=== PATIENT | female | born 1985 | race Caucasian/White ===

== ENCOUNTER → 2017-05-04 | Outpatient (CLI) | payer BC ==
[~2017-05-04] MED LIST: ACHD5005 PO; ALBU0.632 IH; DCS100C PO; DIPH25TA82 PO; DOXY100C2 PO; FLUO20CA25 PO; IBP600T1 PO; Ibuprofen PO; MAGN100T3 PO; MAGN250T7 PO; MAGN400C PO; MGX400T PO; MTH.2T PO; MULTIVITAMEN PO; NAPR220C PO; PREN-46 PO; tylenol #3 PO; vitamin B1 PO
--- NOTE | 2017-05-04 15:38 | Diagnostic Imaging Report ---
EXAMINATION: Pelvic ultrasound. INDICATION: Pelvic pain. COMPARISON: There are no prior studies available for comparison. FINDINGS: The uterus is nongravid and not enlarged measuring 7.3 x 4.6 x 4.1 cm. The endometrial lining is slightly thickened measuring 8 mm. This finding is nonspecific. Correlation with the patient's menstrual cycle would be recommended. There is no focal mass involving the uterus to suggest a fibroid. Both ovaries were identified. There is a 1.4 x 1.0 x 1.1 cm cyst associated with the right ovary. This cyst has a generally benign appearance. There is also a 1.9 x 1.0 x 1.8 cm thick-walled cyst arising from the left ovary. This cyst contains a few internal echoes and may be slightly complicated by infection and/or hemorrhage. There is no solid pelvic mass or free fluid collection noted. IMPRESSION: 1. There are bilateral ovarian cysts. The cyst on the left may be slightly complicated by infection and/or hemorrhage. If further study is desired, then a follow-up exam in 4-6 weeks would be recommended. 2. There is no acute pelvic abnormality noted otherwise. Dictated by: Dictated on workstation # [id number]
== END ==
LOC: RAD 13:57
PROVIDERS: ATTEND Nurse Practitioner Family
DX: N83.201 Unspecified ovarian cyst, right side (principal); N83.202 Unspecified ovarian cyst, left side; R10.2 Pelvic and perineal pain
CPT/HCPCS: 76830

== ENCOUNTER 2017-05-09 08:06 | Emergency (ER) | payer BC ==
[~2017-05-09] VITALS: Ht 154.9 cm; Wt 53.5 kg
--- NOTE | 2017-05-09 09:00 | ED GU-Female ---
General Chief Complaint: Abdominal/GI Problems Stated Complaint: L SIDE BACK PAIN AND PELVIC PAIN Nursing Triage Note: ADM TO ROOM REPORTS THAT SHE HAD LOW ABD FULLNESS APX 2 WEEKS AGO SAW FAMILY DR WAS PLACED ON MEDS FOR YEAST INFECTION. LAST 2 DAYS ONSET O L FLANK PAIN PMH OF OVARIAN CYST. Nursing Sepsis Screen: No Definite Risk Source: patient, family Exam Limitations: no limitations History of Present Illness Time seen by provider: 08:55 Initial Comments This 32-year-old white female presents with left pelvic pain. Patient was evaluated for a yeast infection and treated with Diflucan approximately a week ago. Patient had on transvaginal ultrasound bilateral cysts greater on the left. The patient's left pelvic pain has increased precipitating her presentation to the emergency department today. The patient has had slight serosanguineous vaginal discharge. The patient's pain is cramping in nature moderate in intensity and radiates to the left low back. Patient has had a tubal ligation. The patient denies associated fever, chills, dysuria, hematuria, nausea vomiting diarrhea or constipation. Allergies and Home Medications Allergies Coded Allergies: No Known Drug Allergies (Unverified , 03/27/14) Home Medications Docusate Sodium 100 Mg Cap, 100 MG PO BID, #60 Prescribed by: TODD CROOKS on 03/30/14 0904 Hydrocodone Bit/Acetaminophen 1 Tab Tab, 1-2 TAB PO Q4H PRN for pain, #45 Prescribed by: TODD CROOKS on 03/30/14 0904 Magnesium Oxide 400 Mg Tab, 400 MG PO BIDPC, #60 Prescribed by: TODD CROOKS on 03/30/14 0904 Vit/Fe Fumarate/Fa 1 Each Tablet, 1 EACH PO DAILY, (Reported) [Ibuprofen] 600 MG TAB, 600 MG PO Q6H PRN for PAIN, #40 Prescribed by: TODD CROOKS on 03/30/14 0904 Constitutional: No chills, No fever EENTM: No hearing loss, No vision loss Respiratory: No cough Cardiovascular: No chest pain Gastrointestinal: No diarrhea, No vomiting Genitourinary: see HPI, discharge (small amount of serosanguineous vaginal discharge.), denies dysuria, denies frequency, denies hematuria, other (left pelvic pain radiating in the low back.) Musculoskeletal: back pain Skin: No change in color, No rash Psychiatric/Neurological: No Symptoms Reported Endocrine: No Symptoms Reported Past [id number] Hx Patient Social History Recent Foreign Travel: No Contact w/Someone Who Travel: No Recent Infectious Disease Expo: No Immunizations Up To Date Tetanus Booster (TDap): Less than 5yrs PED Vaccines UTD: No Date of Influenza Vaccine: Jun 14, 2012 Surgeries History of Surgeries: Yes (D&C x1) Surgeries: Tubal Ligation Respiratory History of Respiratory Disorde: Yes (asthma with seasonal allergies) Respiratory Disorders: Asthma Cardiovascular History of Cardiac Disorders: No Neurological History of Neurological Disord: No Reproductive System Hx Reproductive Disorders: No Sexually Transmitted Disease: No HIV/AIDS: No Female Reproductive Disorders: Denies Gastrointestinal History of Gastrointestinal Di: No Musculoskeletal History of Musculoskeletal Dis: Yes Musculoskeletal Disorders: Fibromyalgia Endocrine History of Endocrine Disorders: No Cancer History of Cancer: No Psychosocial History of Psychiatric Problem: Yes (pp depression with last ) Behavioral Health Disorders: Depression Integumentary History of Skin or Integumenta: No Blood Transfusions History of Blood Disorders: No Adverse Reaction to a Blood Tr: No Reviewed Nursing Assessment Reviewed/Agree w Nursing PMH: Yes Family Medical History Significant Family History: Diabetes, Psychiatric Problems Family Medial History: Family history: Diabetes mellitus 19 MOTHER, Onset:40's - 50 Family history: Glaucoma 19 MOTHER, Onset:50's - 60 Psychotic disorder 19 MOTHER (depression) Physical Exam Vital Signs Vital Sign - Last 12Hours 05/09/17 08:16 Temp 98.1 Pulse 69 Resp 18 B/P (MAP) 130/59 Pulse Ox 100 O2 Delivery Room Air Capillary Refill : Less Than 3 Seconds General Appearance: WD/WN, no apparent distress HEENT: normal ENT inspection Neck: normal inspection Cardiovascular: regular rate, rhythm Respiratory: chest non-tender, lungs clear Gastrointestinal: normal bowel sounds, tenderness (greatest in the left lower quadrant. No masses were noted. There was questionable minimal rebound tenderness) Back: normal inspection, no CVA tenderness Extremities: normal range of motion, non-tender Neurologic/Psychiatric: no motor/sensory deficits, alert, normal mood/affect Skin: normal color, warm/dry Progress/Results/Core Measures Results/Orders Lab Results Laboratory Tests Test 05/09/17 08:59 05/09/17 09:10 Range/Units White Blood Count 6.7 4.3-11.0 10^3/uL Red Blood Count 4.38 4.35-5.85 10^6/uL Hemoglobin 12.5 11.5-16.0 G/DL Hematocrit 37 35-52 % Mean Corpuscular Volume 85 80-99 FL Mean Corpuscular Hemoglobin 29 25-34 PG Mean Corpuscular Hemoglobin Concent 34 32-36 G/DL Red Cell Distribution Width 12.9 10.0-14.5 % Platelet Count 175 130-400 10^3/uL Mean Platelet Volume 11.2 H 7.4-10.4 FL Neutrophils (%) (Auto) 61 42-75 % Lymphocytes (%) (Auto) 29 12-44 % Monocytes (%) (Auto) 5 0-12 % Eosinophils (%) (Auto) 4 0-10 % Basophils (%) (Auto) 1 0-10 % Neutrophils # (Auto) 4.1 1.8-7.8 X 10^3 Lymphocytes # (Auto) 1.9 1.0-4.0 X 10^3 Monocytes # (Auto) 0.3 0.0-1.0 X 10^3 Eosinophils # (Auto) 0.3 0.0-0.3 10^3/uL Basophils # (Auto) 0.1 0.0-0.1 10^3/uL Sodium Level 139 135-145 MMOL/L Potassium Level 3.9 3.6-5.0 MMOL/L Chloride Level 109 H 98-107 MMOL/L Carbon Dioxide Level 21 21-32 MMOL/L Anion Gap 9 5-14 MMOL/L Blood Urea Nitrogen 15 7-18 MG/DL Creatinine 0.73 0.60-1.30 MG/DL Estimat Glomerular Filtration Rate > 60 BUN/Creatinine Ratio 21 Glucose Level 92 70-105 MG/DL Calcium Level 8.6 8.5-10.1 MG/DL Total Bilirubin 0.3 0.1-1.0 MG/DL Aspartate Amino Transf (AST/SGOT) 18 5-34 U/L Alanine Aminotransferase (ALT/SGPT) 17 0-55 U/L Alkaline Phosphatase 54 40-136 U/L Total Protein 6.6 6.4-8.2 GM/DL Albumin 4.1 3.2-4.5 GM/DL Human Chorionic Gonadotropin, Quant < 5 <5 MIU/ML Urine Color YELLOW Urine Clarity CLEAR Urine pH 6 5-9 Urine Specific [place] 1.015 L 1.016-1.022 Urine Protein NEGATIVE NEGATIVE Urine Glucose (UA) NEGATIVE NEGATIVE Urine Ketones NEGATIVE NEGATIVE Urine Nitrite NEGATIVE NEGATIVE Urine Bilirubin NEGATIVE NEGATIVE Urine Urobilinogen NORMAL NORMAL MG/DL Urine Leukocyte Esterase NEGATIVE NEGATIVE Urine RBC (Auto) 2+ H NEGATIVE Urine RBC 2-5 H /HPF Urine WBC NONE /HPF Urine Squamous Epithelial Cells 5-10 /HPF Urine Crystals NONE /LPF Urine Bacteria NEGATIVE /HPF Urine Casts NONE /LPF Urine Mucus NEGATIVE /LPF Urine Culture Indicated NO My Orders Orders - DIANDRA ESTRADA MD Hcg,Quantitative (05/09/17 08:51) Cbc With Automated Diff (05/09/17 08:51) Comprehensive Metabolic Panel (05/09/17 08:51) Ua Culture If Indicated (05/09/17 08:51) Us Non Ob Pelvis Comp/Transvag (05/09/17 08:51) Ketorolac Injection (Toradol Injection) (05/09/17 09:00) Ns Iv 1000 Ml (Sodium Chloride 0.9%) (05/09/17 09:00) Medications Given in ED Current Medications Medications Dose Ordered Sig/Uma Route Start Time Stop Time Status Last Admin Dose Admin Ketorolac Tromethamine 30 mg ONCE ONCE IVP 05/09/17 09:00 05/09/17 09:01 DC 05/09/17 09:07 30 MG Vital Signs/I&O Vital Sign - Last 12Hours 05/09/17 08:16 Temp 98.1 Pulse 69 Resp 18 B/P (MAP) 130/59 Pulse Ox 100 O2 Delivery Room Air Blood Pressure Mean: 82 Progress Note : Time: 10:40 Progress Note The patient's laboratory evaluation and vaginal ultrasound demonstrated involuted left ovarian cyst. Patient's pain was significantly improved with IV Toradol. Pelvic exam was unremarkable. There was some moderate left adnexal tenderness but no masses were appreciated. Departure Impression Impression: Primary Impression: Pelvic pain Disposition: HOME, SELF-CARE Condition: Improved Departure-Patient Inst. Decision time for Depature: 10:42 Referrals: PAULA SIMONS MD (PCP/Family) Primary Care Physician Patient Instructions: Ovarian Cyst (DC) Add. Discharge Instructions: Oral Toradol for residual pain as needed. Close follow-up with your caregiver of choice on Thursday. Return if any problems or questions. All discharge instructions reviewed with patient and/or family. Voiced understanding. DIANDRA ESTRADA MD May 09, 2017 09:00
[2017-05-09] MEDS: KETOROLAC 30 MG/ML VIAL IVP ONE (09:07)
[2017-05-09] MEDS: NS IV 1000 ML 1,000 ML IV SCH (09:07)
[2017-05-09 09:13] LABS: BASOPHILS # (AUTO) 0.1 10^3/uL (0.0-0.1); BASOPHILS % (AUTO) 1 % (0-10); EOSINOPHILS # (AUTO) 0.3 10^3/uL (0.0-0.3); EOSINOPHILS % (AUTO) 4 % (0-10); LYMPHOCYTES # (AUTO) 1.9 X 10^3 (1.0-4.0); LYMPHOCYTES % (AUTO) 29 % (12-44); MEAN CORPUSCULAR HEMOGLOBIN 29 PG (25-34); MEAN CORPUSCULAR HGB CONC 34 G/DL (32-36); MEAN CORPUSCULAR VOLUME 85 FL (80-99); MEAN PLATELET VOLUME 11.2 FL (7.4-10.4); MONOCYTES # (AUTO) 0.3 X 10^3 (0.0-1.0); MONOCYTES % (AUTO) 5 % (0-12); NEUTROPHILS # (AUTO) 4.1 X 10^3 (1.8-7.8); NEUTROPHILS % (AUTO) 61 % (42-75); PLATELET COUNT 175 10^3/uL (130-400); RED BLOOD COUNT 4.38 10^6/uL (4.35-5.85); RED CELL DISTRIBUTION WIDTH 12.9 % (10.0-14.5); WHITE BLOOD COUNT 6.7 10^3/uL (4.3-11.0)
[2017-05-09 09:29] LABS: ALANINE AMINOTRANSFERASE 17 U/L (0-55); ALBUMIN 4.1 GM/DL (3.2-4.5); ANION GAP 9 MMOL/L (5-14); ASPARTATE AMINO TRANSFERASE 18 U/L (5-34); BILIRUBIN,TOTAL 0.3 MG/DL (0.1-1.0); BLOOD UREA NITROGEN 15 MG/DL (7-18); BUN/CREATININE RATIO 21; CALCIUM 8.6 MG/DL (8.5-10.1); CARBON DIOXIDE 21 MMOL/L (21-32); CHLORIDE 109 MMOL/L (98-107); CREATININE SERUM 0.73 MG/DL (0.60-1.30); GFR ESTIMATED > 60; GLUCOSE 92 MG/DL (70-105); POTASSIUM 3.9 MMOL/L (3.6-5.0); SODIUM 139 MMOL/L (135-145); TOTAL PROTEIN 6.6 GM/DL (6.4-8.2)
[2017-05-09 09:40] LABS: BILIRUBIN,URINE NEGATIVE (NEGATIVE); KETONES,URINE NEGATIVE (NEGATIVE); LEUKOCYTE ESTERASE ,URINE NEGATIVE (NEGATIVE); NITRITE,URINE NEGATIVE (NEGATIVE); PH,URINE 6 (5-9); PROTEIN,URINE NEGATIVE (NEGATIVE); UROBILINOGEN,URINE NORMAL (NORMAL)
--- NOTE | 2017-05-09 10:53 | Diagnostic Imaging Report ---
EXAM: US NON OB PELVIS COMP/TRANSVAG INDICATION: Left pelvic pain. COMPARISON: Pelvic ultrasound 05/04/2017. TECHNIQUE: Transabdominal and transvaginal sonogram was performed. FINDINGS: The uterus is normal in echogenicity and measures 8.0 x 4.9 x 3.8 cm. The endometrium measures 1.3 cm. The cervix is visualized and is grossly unremarkable. Right ovary measures 1.6 x 2.0 x 2.2 cm. There are normal appearing follicles in the right ovary. The previously seen ovarian cyst is not seen today. Left ovary measures 2.2 x 2.2 x 2.2 cm. Hypoechoic cyst within the left ovary measuring 1.2 x 1.4 x 1.1 cm, similar to the prior exam. No adnexal masses are identified. Normal flow in both ovaries color Doppler. Trace free fluid in the pelvis. IMPRESSION: 1. Stable nonspecific left ovarian cyst measuring up to 1.4 cm. The previously seen right ovarian cyst has resolved. 2. Trace free fluid in the pelvis. Dictated by: Dictated on workstation # [id number]
[2017-05-09 11:04] VITALS: BP 130/59
--- OUTSIDE RECORDS SUMMARY | 2017-05-11 09:16 | XMS REPORT ---
Author Author [facility] Organization [facility] Address [address] [place], [place] [id number] Care Team Providers Care Auricular Therapist Name Role Phone PCP Unavailable Allergies and Adverse Reactions Name Reaction Notes NO KNOWN DRUG ALLERGIES Plan of Treatment Not available. Medications Active Name Start Date Estimated Completion Date SIG Comments Paxil Oral tablet 10 mg take 1 tablet (10 mg) by oral route once daily Vitamin Oral tablet 27-0.8 mg take 1 tablet by oral route once daily albuterol sulfate Inhalation Solution for Nebulization 2.5 mg/0.5 mL inhale 0.5 milliliter (2.5 mg) by nebulization route 3 times per day as needed amoxicillin oral tablet 500 mg 02/25/2015 03/27/2015 one TID Problem List Description Status Onset Asthma Active Depression Active Fatigue Active 02/25/2015 Joint pain Active 02/25/2015 Depressive Disorder Active 02/25/2015 Vital Signs Date Time BP-Sys(mm[Hg] BP-Tami(mm[Hg]) HR(bpm) RR(rpm) Temp WT HT HC BMI BSA BMI Percentile O2 Sat(%) 02/20/2015 2:19:00 PM 105 mmHg 60 mmHg 78 bpm 18 rpm 97.5 F 107 lbs 62 in 19.57 kg/m2 1.46 m2 98 % 11/12/2012 3:12:00 PM 120 mmHg 60 mmHg 98 bpm 18 rpm 97 F 115.25 lbs 63 in 20.4154 kg/m 1.5244 m 100 % Social History Name Description Comments denies alcohol use College graduate Tobacco Never smoker Exercises regularly Uses seatbelts History of Procedures Date Ordered Description Order Status 11/12/2012 12:00 AM THER/PROPH/DIAG INJ SC/IM Reviewed Results Summary Not available. History Of Immunizations Not available. History of Past Illness Name Date of Onset Comments Depression Asthma Fatigue 02/25/2015 Joint pain 02/25/2015 Depressive Disorder 02/25/2015 Cough Nov 12 2012 3:13PM Post-nasal drainage Nov 12 2012 3:13PM Upper Respiratory Infection Nov 12 2012 3:13PM Depressive Disorder Feb 20 2015 2:19PM Fatigue Feb 20 2015 2:19PM Joint pain Feb 20 2015 2:19PM Payers Insurance Name Company Name Plan Name Plan Number Policy Number Policy Group Number Start Date [facility] [id number] N/A History of Encounters Visit Date Visit Type Provider 02/20/2015 Office visit HOPE DAMON 11/12/2012 Office visit HOPE DAMON
[2017-05-11 15:35] LABS: CHLAMYDIA DNA PROBE PT Not Detected (Not Detected); NEISSERIA GONORRHEA DNA Not Detected (Not Detected)
== END 2017-05-09 11:04 | disposition home or self-care (01) ==
LOC: EDUNIT# 08:06 → ER 08:08
DX: N83.202 Unspecified ovarian cyst, left side (principal); R10.2 Pelvic and perineal pain; F32.9 Major depressive disorder, single episode, unspecified; J45.909 Unspecified asthma, uncomplicated; Z98.51 Tubal ligation status
CPT/HCPCS: 36415; 76830; 76856; 80053; 81000; 84702; 85025; 87210; 87491; 87591

== ENCOUNTER → 2018-04-30 | Outpatient (CLI) | payer BC ==
--- NOTE | 2018-04-30 08:02 | Diagnostic Imaging Report ---
PROCEDURE: US Gallbladder. TECHNIQUE: Multiple real-time grayscale images were obtained over the right upper quadrant in various projections. INDICATION: Postprandial nausea, elevated liver function studies. FINDINGS: Gallbladder is normal. No stone or sludge. The gallbladder nondilated and wall non-thickened. Hepatic echotexture pattern appeared normal. There is no liver mass. There is no intra-or extrahepatic bile duct dilatation evident, however the majority of the extrahepatic duct as well as the pancreas obscured by shadowing bowel gas. The unobstructed right kidney normal in size, cortical thickness and echotexture. There is no ascites. IMPRESSION: Normal right upper quadrant ultrasound. Dictated by: Dictated on workstation # [id number]
== END ==
LOC: RAD 06:58
DX: K21.9 Gastro-esophageal reflux disease without esophagitis (principal); R94.5 Abnormal results of liver function studies
CPT/HCPCS: 76705

== ENCOUNTER 2018-09-20 12:15 | Outpatient (CLI) | payer BC ==
[~2018-09-20] VITALS: Ht 154.9 cm; Wt 53.5 kg
[~2018-09-20 12:15] MED LIST changes: +MULT-35 PO; +NORG1TAB33 PO; +RANI-514 PO; +SERT25TA PO
[2018-09-21] MEDS ORDERED: FLUO40CA12 PO (07:14)
[2018-09-21] MEDS ORDERED: IBUP-1773 PO (11:17)
[2018-09-21] MEDS ORDERED: ACHD5005 PO (11:17)
== END 2018-09-20 12:52 | disposition home or self-care (01) ==
LOC: PREOP 12:15
PROVIDERS: ATTEND Obstetrics & Gynecology
DX: Z01.818 Encounter for other preprocedural examination (principal)

== ENCOUNTER 2018-09-21 05:55 | Day surgery (SDC) | payer BC ==
[~2018-09-21] VITALS: Ht 154.9 cm; Wt 53.5 kg
--- OUTSIDE RECORDS SUMMARY | 2018-09-21 06:00 | XMS REPORT | Continuity of Care Document ---
Author Author [facility] Organization [facility] Address Unknown Phone Unavailable Allergies Active Description Code Type Severity Reaction Onset Reported/Identified Relationship to Patient Clinical Status Yes No Known Drug Allergies [id number] Drug Allergy Unknown N/A 03/27/2014 Medications There is no data. Problems Date Dx Coded Attending Type Code Diagnosis Diagnosed By 09/29/2012 Ot 632 MISSED 12/18/2013 TIRSO MCKEON, JOSE M Euceda Ot 648.93 OT CURR COND-ANTEPARTUM 12/18/2013 TIRSO MCKEON, JOSE M Euceda Ot 716.90 ARTHROPATHY NOS-UNSPEC 12/30/2013 HOPE SAN DO Ot 648.93 OT CURR COND-ANTEPARTUM 12/30/2013 HOPE SAN DO Ot 780.2 SYNCOPE AND COLLAPSE 03/15/2014 WILL MCKEON, SHEILA V65.11 NEW MOMMY VISIT 03/30/2014 TODD CROOKS DO Ot 285.1 AC POSTHEMORRHAG ANEMIA 03/30/2014 TODD CROOKS DO Ot 285.9 ANEMIA NOS 03/30/2014 TODD CROOKS DO Ot 648.21 ANEMIA-DELIVERED 03/30/2014 TODD CROOKS DO Ot 654.21 PREV DELIVRY W/ OR W/O MENT ANT 03/30/2014 TODD CROOKS DO Ot V27.0 DELIVER-SINGLE LIVEBORN 05/04/2017 TODD CROOKS DO Ot V28.81 ENCOUNTER FOR ANATOMIC SURVEY 05/09/2017 TODD CROOKS DO Ot V28.81 ENCOUNTER FOR ANATOMIC SURVEY 05/09/2017 ANGELINE YOUNGER MACHINE ROUGH ROUNDER Ot N83.201 UNSPECIFIED OVARIAN CYST, RIGHT SIDE 05/09/2017 ANGELINE YOUNGER MACHINE ROUGH ROUNDER Ot N83.202 UNSPECIFIED OVARIAN CYST, LEFT SIDE 05/09/2017 ANGELINE YOUNGER MACHINE ROUGH ROUNDER Ot R10.2 PELVIC AND PERINEAL PAIN 05/09/2017 SEAN MCKEON, DIANDRA June Ot F32.9 MAJOR DEPRESSIVE DISORDER, SINGLE EPISOD 05/09/2017 SEAN MCKEON, DIANDRA June Ot J45.909 UNSPECIFIED ASTHMA, UNCOMPLICATED 05/09/2017 SEAN MCKEON, DIANDRA June Ot N83.202 UNSPECIFIED OVARIAN CYST, LEFT SIDE 05/09/2017 SEAN MCKEON, DIANDRA June Ot R10.2 PELVIC AND PERINEAL PAIN 05/09/2017 SEAN MCKEON, DIANDRA June Ot Z98.51 TUBAL LIGATION STATUS 05/11/2017 SEAN MCKEON, DIANDRA June Ot F32.9 MAJOR DEPRESSIVE DISORDER, SINGLE EPISOD 05/11/2017 SEAN MCKEON, DIANDRA June Ot J45.909 UNSPECIFIED ASTHMA, UNCOMPLICATED 05/11/2017 SEAN MCKEON, DIANDRA June Ot N83.202 UNSPECIFIED OVARIAN CYST, LEFT SIDE 05/11/2017 SEAN MCKEON, DIANDRA June Ot R10.2 PELVIC AND PERINEAL PAIN 05/11/2017 SEAN MCKEON, DIANDRA June Ot Z98.51 TUBAL LIGATION STATUS 05/11/2017 SEAN MCKEON, DIANDRA June Ot F32.9 MAJOR DEPRESSIVE DISORDER, SINGLE EPISOD 05/11/2017 SEAN MCKEON, DIANDRA June Ot J45.909 UNSPECIFIED ASTHMA, UNCOMPLICATED 05/11/2017 SEAN MCKEON, DIANDRA June Ot N83.202 UNSPECIFIED OVARIAN CYST, LEFT SIDE 05/11/2017 SEAN MCKEON, DIANDRA June Ot R10.2 PELVIC AND PERINEAL PAIN 05/11/2017 SEAN MCKEON, DIANDRA June Ot Z98.51 TUBAL LIGATION STATUS 05/19/2017 ANGELINE YOUNGER APRN Ot N83.201 UNSPECIFIED OVARIAN CYST, RIGHT SIDE 05/19/2017 ANGELINE YOUNGER APRN Ot N83.202 UNSPECIFIED OVARIAN CYST, LEFT SIDE 05/19/2017 ANGELINE YOUNGER APRN Ot R10.2 PELVIC AND PERINEAL PAIN 05/03/2018 Ot K21.9 GASTRO- ESOPHAGEAL REFLUX DISEASE WITHOUT 05/03/2018 Ot R94.5 ABNORMAL RESULTS OF LIVER FUNCTION STUDI 05/14/2018 Ot K21.9 GASTRO- ESOPHAGEAL REFLUX DISEASE WITHOUT 05/14/2018 Ot R94.5 ABNORMAL RESULTS OF LIVER FUNCTION STUDI 09/17/2018 TODD CROOKS DO Ot Z01.818 ENCOUNTER FOR OTHER PREPROCEDURAL EXAMIN Procedures Code Description Performed By Performed On 74.1 LOW CERVICAL 03/28/2014 Results Test Result Range Vitamin D, 25 OH - 10/20/16 10:35 Vitamin D, 25 OH 26.50 ng/mL 25.00-100.00 Lab Card - 10/20/16 10:35 LabCard Specimen submitted to [facility] for Testing. Hep B Surface Ab - 11/07/16 14:40 HEP B SURFACE AB, QUAL REACTIVE CBC with Auto Diff - 11/14/16 11:16 Baso% 0.30 % 0.00-2.50 Eos 0.1 K/uL 0.0-0.7 Eos% 1.7 % 0.0-7.0 Hct 39.0 % 36.0-46.0 Hgb 12.9 g/dL 13.0-15.0 Lym 1.97 K/uL 0.60-3.40 Lym% 28.4 % 10.0-50.0 MCH 28.9 pg 27.0-31.0 MCHC 33.1 g/dL 32.0-36.0 MCV 87.4 fL 80.0-97.0 [place]% 6.5 % 0.0-12.0 MPV 10.6 fL 7.4-10.0 Omayra% 63.1 % 37.0-80.0 Plt 223 K/uL 150-400 RBC 4.46 M/uL 3.60-5.00 RDW 13.6 % 11.6-14.8 WBC 6.93 K/uL 5.00-10.00 Omayra 4.37 K/uL 2.00-6.90 [place] 0.5 K/uL 0.0-0.9 Baso 0.0 K/uL 0.0-0.2 Complete blood count (CBC) with automated white blood cell (WBC) differential - 05/09/17 08:59 Blood leukocytes automated count (number/volume) 6.7 10*3/uL 4.3-11.0 Blood erythrocytes automated count (number/volume) 4.38 10*6/uL 4.35-5.85 Venous blood hemoglobin measurement (mass/volume) 12.5 g/dL 11.5-16.0 Blood hematocrit (volume fraction) 37 % 35-52 Automated erythrocyte mean corpuscular volume 85 [foz_us] 80-99 Automated erythrocyte mean corpuscular hemoglobin (mass per erythrocyte) 29 pg 25-34 Automated erythrocyte mean corpuscular hemoglobin concentration measurement ( mass/volume) 34 g/dL 32-36 Automated erythrocyte distribution width ratio 12.9 % 10.0-14.5 Automated blood platelet count (count/volume) 175 10*3/uL 130-400 Automated blood platelet mean volume measurement 11.2 [foz_us] 7.4-10.4 Automated blood neutrophils/100 leukocytes 61 % 42-75 Automated blood lymphocytes/100 leukocytes 29 % 12-44 Blood monocytes/100 leukocytes 5 % 0-12 Automated blood eosinophils/100 leukocytes 4 % 0-10 Automated blood basophils/100 leukocytes 1 % 0-10 Blood neutrophils automated count (number/volume) 4.1 10*3 1.8-7.8 Blood lymphocytes automated count (number/volume) 1.9 10*3 1.0-4.0 Blood monocytes automated count (number/volume) 0.3 10*3 0.0-1.0 Automated eosinophil count 0.3 10*3/uL 0.0-0.3 Automated blood basophil count (count/volume) 0.1 10*3/uL 0.0-0.1 Comprehensive metabolic panel - 05/09/17 08:59 Serum or plasma sodium measurement (moles/volume) 139 mmol/L 135-145 Serum or plasma potassium measurement (moles/volume) 3.9 mmol/L 3.6-5.0 Serum or plasma chloride measurement (moles/volume) 109 mmol/L 98-107 Carbon dioxide 21 mmol/L 21-32 Serum or plasma anion gap determination (moles/volume) 9 mmol/L 5-14 Serum or plasma urea nitrogen measurement (mass/volume) 15 mg/dL 7-18 Serum or plasma creatinine measurement (mass/volume) 0.73 mg/dL 0.60-1.30 Serum or plasma urea nitrogen/creatinine mass ratio 21 NRG Serum or plasma creatinine measurement with calculation of estimated glomerular filtration rate > NRG Serum or plasma glucose measurement (mass/volume) 92 mg/dL 70-105 Serum or plasma calcium measurement (mass/volume) 8.6 mg/dL 8.5-10.1 Serum or plasma total bilirubin measurement (mass/volume) 0.3 mg/dL 0.1-1.0 Serum or plasma alkaline phosphatase measurement (enzymatic activity/volume) 54 U/L 40-136 Serum or plasma aspartate aminotransferase measurement (enzymatic activity/ volume) 18 U/L 5-34 Serum or plasma alanine aminotransferase measurement (enzymatic activity/volume ) 17 U/L 0-55 Serum or plasma protein measurement (mass/volume) 6.6 g/dL 6.4-8.2 Serum or plasma albumin measurement (mass/volume) 4.1 g/dL 3.2-4.5 Serum or plasma choriogonadotropin measurement (units/volume) - 05/09/17 08:59 Serum or plasma choriogonadotropin measurement (units/volume) < m[iU ]/mL <5 Complete urinalysis with reflex to culture - 05/09/17 09:10 Urine color determination YELLOW NRG Urine clarity determination CLEAR NRG Urine pH measurement by test strip 6 5-9 Specific gravity of urine by test strip 1.015 1.016- 1.022 Urine protein assay by test strip, semi-quantitative NEGATIVE NEGATIVE Urine glucose detection by automated test strip NEGATIVE NEGATIVE Erythrocytes detection in urine sediment by light microscopy 2+ NEGATIVE Urine ketones detection by automated test strip NEGATIVE NEGATIVE Urine nitrite detection by test strip NEGATIVE NEGATIVE Urine total bilirubin detection by test strip NEGATIVE NEGATIVE Urine urobilinogen measurement by automated test strip (mass/volume) NORMAL NORMAL Urine leukocyte esterase detection by dipstick NEGATIVE NEGATIVE Automated urine sediment erythrocyte count by microscopy (number/high power field) [HPF] NRG Automated urine sediment leukocyte count by microscopy (number/high power field ) NONE NRG Bacteria detection in urine sediment by light microscopy NEGATIVE NRG Squamous epithelial cells detection in urine sediment by light microscopy 5-10 NRG Crystals detection in urine sediment by light microscopy NONE NRG Casts detection in urine sediment by light microscopy NONE NRG Mucus detection in urine sediment by light microscopy NEGATIVE NRG Complete urinalysis with reflex to culture NO NRG Microscopic examination by wet preparation - 05/09/17 10:38 WET PREP RESULTS NO TRICHOMONAS OBSERVED NRG Chlamydia trachomatis DNA detection by probe and signal amplification method - 05/09/17 10:38 Chlamydia trachomatis DNA detection by probe and target amplification method Not Detected Not Detected Neisseria gonorrhoeae DNA detection by probe and signal amplification method - 05/09/17 10:38 Gonorrhea amp DNA-urine Not Detected Not Detected Lab Card - 01/22/18 08:29 LabCard Specimen submitted to [facility] for Testing. Lab Card - 04/21/18 09:53 LabCard Specimen submitted to [facility] for Testing. Encounters ACCT No. Visit Date/Time Discharge Status Pt. Type Provider Facility Loc./Unit Complaint [id number] 04/23/2015 21:51:47 04/23/2015 23:59:59 CLS Outpatient HOPE EUCEDA [id number] 09/16/2018 05:33:00 09/16/2018 23:59:59 CLS Outpatient TODD CROOKS DO [facility] PREOP MENORRHAGIA [id number] 05/09/2017 08:08:00 05/09/2017 11:04:00 DIS Emergency SEAN MCKEON, DIANDRA June [facility] ER L SIDE BACK PAIN AND PELVIC PAIN [id number] 05/04/2017 13:57:00 05/04/2017 23:59:59 CLS Outpatient ANGELINE YOUNGER APRN [facility] RAD PELVIC AND PERINEAL PAIN [id number] 03/28/2014 00:01:00 03/30/2014 17:50:00 DIS Inpatient TODD CROOKS DO [facility] LDRP PT [place] [place] [id number] 12/30/2013 17:50:00 12/30/2013 20:25:00 DIS Outpatient HOPE SAN DO [facility] WSo SYNCOPE [id number] 12/18/2013 09:21:00 12/18/2013 11:35:00 DIS Outpatient JOSE M CHAHAL MD [facility] JOINT PAIN [id number] 12/02/2013 09:45:00 12/02/2013 23:59:59 CLS Outpatient TODD CROOKS DO [facility] RAD SURVEY [id number] 09/21/2018 08:00:00 PEN Preadmit TODD CROOKS DO [facility] SDC MENORRHAGIA [id number] 04/30/2018 06:58:00 Document Registration [id number] 09/29/2012 09:48:00 Document Registration [id number] 04/21/2018 09:43:00 04/21/2018 23:59:00 DIS Outpatient PAULA SIMONS [id number] 01/22/2018 08:11:00 01/22/2018 23:59:00 DIS Outpatient MAYLINLANCE PAULA [id number] 06/16/2017 16:24:00 06/16/2017 23:59:00 DIS Outpatient SELF, PHY [id number] 11/14/2016 11:13:00 11/14/2016 23:59:00 DIS Outpatient KRISTYN PAULA [id number] 10/20/2016 10:30:00 10/20/2016 23:59:00 DIS Outpatient AIRAM DUTTON [id number] 06/30/2016 15:40:00 06/30/2016 23:59:00 DIS Outpatient SELF, VAMSI [id number] 11/07/2016 14:36:00 Document Registration [id number] 03/15/2014 14:38:00 03/15/2014 23:59:59 [facility] Outpatient WILL MCKEON, SHEILA
[2018-09-21] MEDS ORDERED: LACTATED RINGERS 1,000 ML IV PRN (06:08)
[2018-09-21 06:15] VITALS: BP 118/73
[2018-09-21] MEDS ORDERED: ceFAZolin INJECTION 1,000 MG in NS (IVPB) 50 ML IV ONE (06:15)
[2018-09-21] MEDS ORDERED: ONDANSETRON 4 MG/2 ML (SDV) Z0FRAN ONE (06:50)
[2018-09-21] MEDS ORDERED: fentaNYL INJECTION 100 MCG/2 ML AMP ONE (06:50)
[2018-09-21] MEDS ORDERED: SEVOFLURANE (ULTANE) 15 ML INHAL SOLN ONE ×3 (06:50→11:04)
[2018-09-21] MEDS ORDERED: DEXAMETHASONE 10 MG/ML (DECADRON) 1 ML VIAL ONE (06:50)
[2018-09-21] MEDS ORDERED: LIDOCAINE PF 2% 5 ML (XYLOCAINE) VIAL ONE (06:50)
[2018-09-21] MEDS ORDERED: proPOfol 200 MG/20 ML (DIPRIVAN) VIAL IV ONE (06:50)
[2018-09-21] MEDS ORDERED: KETOROLAC 30 MG/ML VIAL ONE (06:51)
[2018-09-21] MEDS ORDERED: MIDAZOLAM 2 MG/2 ML (VERSED) VIAL ONE (06:51)
[2018-09-21] MEDS ORDERED: FLUO40CA12 PO (07:14)
--- NOTE | 2018-09-21 10:32 | Progress Note-Pre Operative ---
Pre-Operative Progress Note H&P Reviewed The H&P was reviewed, patient examined and no changes noted. Date Seen by Provider: Sep 21, 2018 Time Seen by Provider: 10:30 Date H&P Reviewed: Sep 21, 2018 Time H&P Reviewed: 07:30 Pre-Operative Diagnosis: menorrhagia TODD CROOKS DO Sep 21, 2018 10:32
--- NOTE | 2018-09-21 11:13 | Operative Report ---
Operative Report Date of Procedure/Surgery Sep 21, 2018 Surgeon (s) TODD CROOKS DO Porcelain Waxer (s): NA Post-Operative Diagnosis menorrhagia Procedure Performed hysteroscopy dilation and curettage, Novasure endometrial ablation Description of Procedure Anesthesia Type: General Estimated blood loss (mL): minimal Specimen(s) collected/removed endometrial curettings Description of the Procedure With informed consent the patient was taken to the operating room where general anesthesia was found to be adequate. She was prepped and draped in the usual sterile fashion in the dorsolithotomy position. The bladder was drained of clear yellow urine with a straight cath. A weighted speculum was placed in the vagina and the cervix was grasped with a tenaculum. The cervix was dilated with Jeremie dilators. I then inserted a sure Sound. The length was 6.5 cm At this point The hysteroscope was inserted and a hysteroscope was done. There was no abnormal pathology. I removed the scope and a gentle curette was done with a small amount of proliferative tissue that was sent for pathology. I then inserted the NovaSure device and measurements were taken. The width was 3.8 cm. I then did the compliance test by inserting a small puff of CO2 and once this was passed, the device was enabled. Ablation was achieved at 60 seconds with a power of 136. The device halted the procedure once the ablation was completed. The patient tolerated the procedure well. The device and instruments were removed. the patient was awakened and taken to recovery in a stable condition. Sponge, lap and instrument counts were correct times two. Findings of the Procedure Length 6.5 cm width 3.8 cm Poser 136 60 seconds 40 ml deficit Allergies and Home Medications Allergies Coded Allergies: No Known Drug Allergies (Unverified , 09/20/18) Home Medications Fluoxetine HCl 40 Mg Capsule, 40 MG PO DAILY, (Reported) Multivitamin 1 Each Tablet, 1 EACH PO DAILY, (Reported) Norgestrel-Ethinyl Estradiol 1 Each Tablet, 1 EACH PO DAILY, (Reported) Ranitidine HCl 75 Mg Tablet, 75 MG PO DAILY, (Reported) Patient Home Medication List Home Medication List Reviewed: Yes TODD CROOKS DO Sep 21, 2018 11:13
[2018-09-21] MEDS ORDERED: ONDANSETRON 4 MG/2 ML (SDV) Z0FRAN IVP PRN (11:15)
[2018-09-21] MEDS ORDERED: HYDROcodone/APAP 5 MG/325 MG (LORTAB) TAB PO PRN (11:15)
[2018-09-21] MEDS ORDERED: morphine INJ 10 MG/ML 1ML (SYR OR VIAL) IVP ONE (11:15)
[2018-09-21] MEDS ORDERED: KETOROLAC 30 MG/ML VIAL IVP PRN (11:15)
[2018-09-21] MEDS ORDERED: IBUP-1773 PO (11:17)
[2018-09-21] MEDS ORDERED: ACHD5005 PO (11:17)
--- NOTE | 2018-09-21 11:19 | Discharge Inst-Women's Service ---
Discharge Inst-Women's Serv Depart Medication/Instructions New, Converted or Re-Newed RX: RX on Chart Instructions expect light spotting, bleeding for up to 7 days vaginal discharge at about 7-10 days post op is normal call for fever, pain, concerns Final Diagnosis menorrhagia Consults/Follow Up Additional Follow Up: Yes (2 weeks with Jessica or Micah) Activity Activity: Activity as Tolerated Driving Instructions: No Driving for 24 Hours NO SMOKING: NO SMOKING Nothing Inside Vagina: No Douching, No Zoar (for 2 weeks), No Tampons Diet Discharge Diet: No Restrictions Symptoms to Report to DrJesse: Bleeding Excessive, Pain Increased, Fever Over 101 Degrees F, Vaginal Bleeding Increase, Cramps in Feet or Legs, Vaginal Discharge Foul For Any Problems or Questions: Contact Your Physician TODD CROOKS DO Sep 21, 2018 11:19
[2018-09-21 12:10] VITALS: BP 110/59
[2018-09-21 12:39] VITALS: BP 115/72
[2018-09-21 13:10] VITALS: BP 102/70
--- NOTE | 2018-09-21 13:23 | Anesthesia-General Post-Op ---
General Patient Condition Mental Status/LOC: Same as Preop Cardiovascular: Satisfactory Nausea/Vomiting: Absent Respiratory: Satisfactory Pain: Controlled Complications: Absent Post Op Complications Complications None Follow Up Care/Instructions Patient Instructions None needed. Anesthesia/Patient Condition Patient Condition Patient is doing well, no complaints, stable vital signs, no apparent adverse anesthesia problems. No complications reported per nursing. DUDLEY DELEON CRNA Sep 21, 2018 13:23
== END 2018-09-21 13:15 | disposition home or self-care (01) ==
LOC: SDC 05:55
PROVIDERS: ATTEND Obstetrics & Gynecology
DX: N92.0 Excessive and frequent menstruation with regular cycle (principal); J45.909 Unspecified asthma, uncomplicated; M79.7 Fibromyalgia
CPT/HCPCS: 84703; 87081; 94664

== ENCOUNTER → 2021-07-04 | Outpatient (CLI) | payer BC ==
[~2021-07-04] MED LIST changes: +FLUO40CA12 PO; +IBUP-1773 PO; -RANI-514 PO; +RANI-607 PO
--- NOTE | 2021-07-04 12:30 | Diagnostic Imaging Report ---
PROCEDURE: Pelvic comp/transvaginal sonogram. TECHNIQUE: Complete transabdominal and transvaginal pelvic ultrasound was performed. In addition, limited pelvic Doppler was performed. INDICATION: Dyspareunia and pelvic pain. Uterus measures 6.4 x 3.1 x 4.1 cm. Endometrium is 4 mm in thickness and shows some heterogeneity. There is heterogeneity of the myometrium but no discrete myometrial mass is detected. Right ovary measures 1.5 x 2.1 x 2.3 cm and left ovary measures 2.1 x 1.4 x 1.4 cm. Both ovaries demonstrate blood flow. There is no free fluid. IMPRESSION: There is endometrial and myometrial heterogeneity. No discrete mass is detected. The study is otherwise unremarkable. Dictated by: Dictated on workstation # [id number]
== END ==
LOC: RAD 09:47
PROVIDERS: ATTEND Obstetrics & Gynecology
DX: R10.2 Pelvic and perineal pain (principal)
CPT/HCPCS: 76830; 76856

== ENCOUNTER 2021-07-16 05:44 | Outpatient (CLI) | payer BC ==
[~2021-07-16] VITALS: Ht 157.5 cm; Wt 50.9 kg
[2021-07-17] MEDS ORDERED: FEXO180T84 PO (13:08)
[2021-07-17] MEDS ORDERED: MULT-1136 PO (13:08)
== END 2021-07-17 13:20 | disposition home or self-care (01) ==
LOC: PREOP 05:44
PROVIDERS: ATTEND Obstetrics & Gynecology
DX: Z01.818 Encounter for other preprocedural examination (principal)

== ENCOUNTER 2021-07-23 10:19 | Day surgery (SDC) | payer BC ==
[2021-07-23] VITALS (11 sets, daily range): BP systolic 82–96; BP diastolic 40–67
[~2021-07-23] VITALS: Ht 157.5 cm; Wt 50.9 kg
[~2021-07-23 10:19] MED LIST changes: +FEXO180T84 PO; +MULT-1136 PO
[2021-07-23] MEDS ORDERED: ESTRADIOL VAGINAL CREAM 42.5 GM (ESTRACE) VG ONE (10:28)
[2021-07-23] MEDS ORDERED: LIDOCAINE/EPI 1%-1:100,000 (XYLOCAINE) 20ML ONE (10:29)
[2021-07-23] MEDS ORDERED: VASOPRESSIN INJECTION 20 UNIT/ML VIAL ONE (10:29)
[2021-07-23] MEDS ORDERED: NS (IVPB) 0 ML ONE (10:29)
[2021-07-23 10:40] LABS: BILIRUBIN,URINE NEGATIVE (NEGATIVE); CLARITY,URINE CLEAR; COLOR,URINE YELLOW; GLUCOSE, URINE (UA) NEGATIVE (NEGATIVE); KETONES,URINE 3+ (NEGATIVE); LEUKOCYTE ESTERASE ,URINE NEGATIVE (NEGATIVE); NITRITE,URINE NEGATIVE (NEGATIVE); PROTEIN,URINE NEGATIVE (NEGATIVE)
[2021-07-23] MEDS ORDERED: ceFAZolin 2 GM IV Premixed 50 ML IV ONE (10:45)
--- NOTE | 2021-07-23 10:47 | Progress Note-Pre Operative ---
Pre-Operative Progress Note H&P Reviewed The H&P was reviewed, patient examined and no changes noted. Date Seen by Provider: Jul 23, 2021 Time Seen by Provider: 10:40 Date H&P Reviewed: Jul 23, 2021 Time H&P Reviewed: 10:40 Pre-Operative Diagnosis: abnormal uterine bleeding s/p uterine ablation TODD CROOKS DO Jul 23, 2021 10:47
[2021-07-23 10:52] LABS: BACTERIA,URINE TRACE /HPF; RBC,URINE 0-2 /HPF
[2021-07-23 10:53] LABS: SQUAMOUS EPITHELIAL CELL,UR 0-2 /HPF
[2021-07-23 11:33] LABS: BASOPHILS # (AUTO) 0.1 10^3/uL (0.0-0.1); BASOPHILS % (AUTO) 1 % (0-10); EOSINOPHILS # (AUTO) 0.1 10^3/uL (0.0-0.3); EOSINOPHILS % (AUTO) 1 % (0-10); HEMATOCRIT 39 % (35-52); HEMOGLOBIN 13.3 g/dL (11.5-16.0); LYMPHOCYTES # (AUTO) 1.7 10^3/uL (1.0-4.0); LYMPHOCYTES % (AUTO) 17 % (12-44); MEAN CORPUSCULAR HEMOGLOBIN 29 pg (25-34); MEAN CORPUSCULAR HGB CONC 34 g/dL (32-36); MEAN CORPUSCULAR VOLUME 85 fL (80-99); MONOCYTES # (AUTO) 0.4 10^3/uL (0.0-1.0); MONOCYTES % (AUTO) 4 % (0-12); NEUTROPHILS # (AUTO) 7.3 10^3/uL (1.8-7.8); NEUTROPHILS % (AUTO) 76 % (42-75); PLATELET COUNT 214 10^3/uL (130-400); WHITE BLOOD COUNT 9.5 10^3/uL (4.3-11.0)
[2021-07-23] MEDS: LACTATED RINGERS 1,000 ML IV PRN ×2 (11:50→13:14)
[2021-07-23] MEDS ORDERED: GLYCOPYRROLATE 0.2 MG/ML (ROBINUL) 2 ML VIAL ONE (12:38)
[2021-07-23] MEDS ORDERED: MIDAZOLAM 2 MG/2 ML (VERSED) VIAL ONE (12:38)
[2021-07-23] MEDS ORDERED: LIDOCAINE PF 2% 5 ML (XYLOCAINE) VIAL ONE (12:38)
[2021-07-23] MEDS ORDERED: NEOSTIGMINE 3 MG/3 ML VIAL ONE (12:38)
[2021-07-23] MEDS ORDERED: ROCURONIUM 10 MG/ML 5 ML SYRINGE IV ONE (12:38)
[2021-07-23] MEDS ORDERED: proPOfol 200 MG/20 ML (DIPRIVAN) VIAL IV ONE (12:38)
[2021-07-23] MEDS ORDERED: fentaNYL INJ 100 MCG/2 ML AMP ONE (12:38)
[2021-07-23] MEDS ORDERED: ONDANSETRON 4 MG/2 ML (SDV) Z0FRAN ONE (12:38)
[2021-07-23] MEDS ORDERED: PHENYLEPHRINE 100 MCG/ML 10 ML (ANESTHESIA) SYR ONE (12:59)
--- NOTE | 2021-07-23 14:59 | Operative Report ---
Operative Report Date of Procedure/Surgery Jul 23, 2021 Surgeon (s) TODD CROOKS DO Donkey Engine Firer/Fireman (s): NA Post-Operative Diagnosis abnormal uterine bleeding post ablation cervical stenosis extensive enteropelvic and paratubal adhesions uterovaginal prolapse Procedure Performed RaTH, neeru salpingectomy extensive lysis of adhesions Description of Procedure Anesthesia Type: General Estimated blood loss (mL): minimal Specimen(s) collected/removed uterus, bilateral tubes and ovaries Description of the Procedure After informed consent was obtained, patient was taken into the operating room where general anesthetic was found to be adequate. She was prepped and draped in the usual sterile fashion in the dorsal lithotomy position. A Singh catheter was placed. A speculum was placed in the vagina. The cervix was visualized and the anterior lip was grasped with a sharp toothed tenaculum. The uterus was sounded and depth was approximately 8 centimeters. I placed the Amarilis device (8 cm) and a 3 cm collar was advanced over the cervix. I inserted the Amarilis without difficulty, inflating the balloon and securing it around the fornix of the cervix. The collar was then secured with sutures at 12 o'clock. Attention was then turned to the patient's abdomen. The skin was injected with 0.25% Marcaine. A supraumbilical incision was made about 8 mm in length. A Veress needle was inserted and I confirmed intraabdominal placement with a drop in pressure and the saline drop test. The opening pressure was 6 mmHg. I then insufflated the abdomen to a maximum of 15 mmHg with warmed CO2 gas. I placed an additional 8 mm trocar in the left abdomen lateral to the umbilicus approximately 15 cm lateral to the supraumbilical incision. The second robotic port was placed about 12 cm lateral to the right of the umbilical placement. This was an 8 mm trocar. These were placed under direct visualization of the laparoscope. 0.25% Marcaine was injected prior to placement of all trocars. When all placements were confirmed, the patient was placed in steep Trendelenburg allowing adequate visualization and the robot was brought in for docking. The docking was accomplished without difficulty. I then took over the command of the robot utilizing the synchroseal and monopolar todd. The uterus was boggy and anteverted and there were adhesions in the right mid abdomen omental and bowel, left pericolic adhesion, adhesions in the culdesac, paratubal adhesions that all were taken down prior to accomplishing the hysterectomy. The right midabdominal omental adhesions were fairly dense and due to previous appendectomy. There was a loop of bowel more loosely adherent to the right side wall kinking the bowel. I took these down gently without bleeding. This took approximately an additional 20 minutes before I could start the hysterectomy. Now, I was able to visualize the round ligaments bilaterally and grasped them and cauterized with bipolar cautery and then cut with my todd. At this point, I then did bilateral salpingectomy. I incised the mesosalpinx with the todd. Then, I grasped the uterine ovarian ligament and transected bilaterally using the synchroseal. I then moved my dissection to the posterior leaves of the broad ligament. I dissected the posterior leaves of the broad ligament off the uterine arteries skeletonizing them bilaterally. I then took a second clamp with the synchroseal and with the todd, transected the vessels away from the lateral aspect to the cervical stroma. I dissected the anterior peritoneum off the lower uterine segment. I continually pushed the bladder back and I took excessively great care. I then dissected in a V fashion towards the midline between the uterosacral ligaments. This allowed me to skeletonize the uterine vessels bilaterally. The balloon on the AMARILIS was insufflated. This allowed me to see the AMARILIS circumferentially. I then performed a colpotomy anteriorly and then amputate with cervix away from the vaginal fornix. I then continued the colpotomy circumferentially. Once this was performed, the funeral assistant removed the uterus and the tubes through the vagina. She then left the a sponge in the vagina to maintain the pneumoperitoneum. . I then began closure of the vaginal cuff. I closed the apices of the vaginal cuff with 2-0 Vicryl V lock sutures with a colposuspension through the uterosacral ligaments. This suspended the apices of the vaginal cuff. I extended this to the midline from both sides and overlapped the V lock sutures in the midline. Excellent closure is noted and hemostasis is achieved. All the needles were removed from the patient's abdomen. Now, the robotic instruments were removed and the robot was docked back to laparoscopy. The pelvis was irrigated. There was no active bleeding noted. Bilateral ureters were seen the entire time during the surgery and were peristalsing. There was no excessive bleeding noted. The trocars were removed under direct visualization. The laparoscopic sites were visualized and found to be hemostatic. The trocar sites were injected with 0.25% Marcaine. The skin incisions were closed with 4-0 Monocryl in a subcuticular fashion and then with Dermabond. Op sites were placed over the incision sites. The instruments were removed from the vagina and I noted there were no abrasions. Sponge, lap, needle and instrument counts correct times two. Patient was awakened and taken to recovery in a stable condition. Findings of the Procedure uterus was boggy and anteverted adhesions in the right mid abdomen omental and bowel left pericolic adhesion adhesions in the culdesac paratubal adhesions bilateral tubal interruption/fallope rings bilaterral functional ovarian cysts bilateral tubal cysts Allergies and Home Medications Allergies Coded Allergies: No Known Drug Allergies (Unverified , 09/20/18) Patient Home Medication List Home Medication List Reviewed: Yes Acetaminophen (Acetaminophen) 500 Mg Tablet, 1,000 MG PO Q8HR Prescribed by: TODD CROOKS on 07/23/21 152 Bethanechol Chloride (Bethanechol Chloride) 25 Mg Tablet, 25 MG PO ACHS Prescribed by: TODD CROOKS on 07/25/21 145 Fexofenadine HCl (Lakisha Allergy) 180 Mg Tablet, 180 MG PO DAILY, (Reported) Entered as Reported by: CHRISTIANO IRAHETA on 07/17/21 1308 Last Action: Last Taken Edited Ibuprofen (Ibu) 600 Mg Tablet, 600 MG PO Q6HR Prescribed by: TODD CROOKS on 07/23/21 152 Multivitamin (Multivitamin) 1 Each Tablet, 1 EACH PO DAILY, (Reported) Entered as Reported by: CHRISTIANO IRAHETA on 07/17/21 1308 Last Action: Last Taken Edited Oxycodone Hcl (Oxyir Tablet) 5 Mg Tab, 5 MG PO Q4HR PRN for PAIN-SEE DOSE INSTRUCTIONS Prescribed by: TODD CROOKS on 07/23/21 152 Simethicone (Mi-Acid) 80 Mg Tab.chew, 80 MG PO Q2H PRN for GAS Prescribed by: TODD CROOKS on 07/25/21 145 Tamsulosin HCl (Flomax) 0.4 Mg Cap, 0.4 MG PO DAILY@1800 Prescribed by: TODD CROOKS on 07/25/21 1453 TODD CROOKS DO Jul 23, 2021 14:58
[2021-07-23] MEDS ORDERED: LACTATED RINGERS 1,000 ML IV SCH (15:00)
[2021-07-23] MEDS ORDERED: ONDANSETRON 4 MG (ZOFRAN) ORAL DISSOLVE TAB PO PRN (15:00)
[2021-07-23] MEDS ORDERED: morphine INJ 4 MG/ML 1 ML (VIAL/SYRINGE) IV PRN (15:00)
[2021-07-23] MEDS ORDERED: KETOROLAC 30 MG/ML VIAL IVP ONE (15:00)
[2021-07-23] MEDS ORDERED: NALOXONE 0.4 MG/ML 1 ML (NARCAN) VIAL IV PRN (15:00)
--- NOTE | 2021-07-23 15:12 | Anesthesia-General Post-Op ---
General Patient Condition Mental Status/LOC: Same as Preop Cardiovascular: Satisfactory Nausea/Vomiting: Absent Respiratory: Satisfactory Pain: Controlled Complications: Absent Post Op Complications Complications None Follow Up Care/Instructions Patient Instructions None needed. Anesthesia/Patient Condition Patient Condition Patient is doing well, no complaints, stable vital signs, no apparent adverse anesthesia problems. No complications reported per nursing. ADRIENNE HAYDEN CRNA Jul 23, 2021 15:12
[2021-07-23] MEDS ORDERED: HYDROmorphone 2 MG/ML VIAL (DILAUDID) IV ONE (15:15)
[2021-07-23] MEDS ORDERED: MEPERIDINE (DEMEROL) INJ 50 MG/ML IVP ONE (15:15)
[2021-07-23] MEDS ORDERED: ONDANSETRON 4 MG/2 ML (SDV) Z0FRAN IVP PRN (15:15)
[2021-07-23] MEDS ORDERED: fentaNYL INJ 100 MCG/2 ML AMP IVP ONE (15:15)
[2021-07-23] MEDS ORDERED: PROMETHAZINE INJ 25 MG/ML (PHENERGAN) AMP IVP ONE (15:15)
[2021-07-23] MEDS ORDERED: morphine INJ 10 MG/ML 1ML (SYR OR VIAL) IVP ONE (15:15)
[2021-07-23] MEDS ORDERED: SEVOFLURANE (ULTANE) 15 ML INHAL SOLN ONE (15:17)
[2021-07-23] MEDS: KETOROLAC 30 MG/ML VIAL IV SCH ×2 (15:20→21:00)
[2021-07-23] MEDS ORDERED: ACET-93 PO (15:23)
[2021-07-23] MEDS ORDERED: OXC5T PO (15:23)
[2021-07-23] MEDS ORDERED: IBUP-844 PO (15:23)
--- NOTE | 2021-07-23 15:25 | Discharge Inst-Women's Service ---
Discharge Inst-Women's Serv Depart Medication/Instructions New, Converted or Re-Newed RX: Transmitted to Pharmacy Final Diagnosis abnormal uterine bleeding enteropelvic adhesions pelvic pain Problems Reviewed?: Yes Consults/Follow Up Additional Follow Up: Yes (1 week for incision check with Asha; 6-8 week post op) Activity Activity: Activity as Tolerated Driving Instructions: No Driving for 1 Week NO SMOKING: NO SMOKING Nothing Inside Vagina: No Douching, No [place]ola (until cleared by physician), No Tampons Diet Discharge Diet: No Restrictions Symptoms to Report to : Swelling Increased, Bleeding Excessive, Fever Over 101 Degrees F, Vaginal Bleeding Increase, Cramps in Feet or Legs, Vaginal Discharge Foul For Any Problems or Questions: Contact Your Physician Skin/Wound Care Infection Signs and Symptoms: Increased Redness, Foul Odor of Wound, Increased Drainage, Skin Itchy or Has a Rash, Increased Swelling, Temperature Above 101 F Operative Area Clean and Dry: You May Remove Bandage (in 3 days) Stitches/Artemio/Dermabond: Dermabond Bathing Instructions: TODD Miller DO Jul 23, 2021 15:25
[2021-07-23] MEDS ORDERED: morphine INJ 10 MG/ML 1ML (SYR OR VIAL) ONE (15:41)
[2021-07-23] MEDS ORDERED: ACETAMINOPHEN 500 MG TAB (TYLENOL) ONE (18:36)
[2021-07-23] MEDS ORDERED: ACETAMINOPHEN 500 MG TAB (TYLENOL) PO SCH (22:00)
[2021-07-24] MEDS ORDERED: IBUPROFEN 600 MG (MOTRIN) TAB PO SCH (18:00)
[2021-07-25] MEDS ORDERED: BETH25TA2 PO (14:53)
== END 2021-07-23 21:10 | disposition home or self-care (01) ==
LOC: SDC 10:19 → WS 16:05 → SDC 21:10
PROVIDERS: ATTEND Obstetrics & Gynecology
DX: N93.9 Abnormal uterine and vaginal bleeding, unspecified (principal); N88.2 Stricture and stenosis of cervix uteri; K66.0 Peritoneal adhesions (postprocedural) (postinfection); N81.4 Uterovaginal prolapse, unspecified; D25.2 Subserosal leiomyoma of uterus; N99.85 Post endometrial ablation syndrome; N80.0 Endometriosis of uterus; N83.8 Other noninflammatory disorders of ovary, fallopian tube and broad ligament; J45.909 Unspecified asthma, uncomplicated; F32.A Depression, unspecified; Z79.891 Long term (current) use of opiate analgesic; Z79.899 Other long term (current) drug therapy; Z90.89 Acquired absence of other organs; Z83.3 Family history of diabetes mellitus
CPT/HCPCS: 36415; 81000; 84703; 85025; 86850; 86900; 86901; 87081; 88307

== ENCOUNTER 2021-07-24 04:16 | Observation (INO) | payer BC ==
[~2021-07-24] VITALS: Ht 157 cm; Wt 47.0 kg
[~2021-07-24 04:16] MED LIST changes: +ACET-93 PO; +IBUP-844 PO; +OXC5T PO
[2021-07-24 04:38] LABS: BILIRUBIN,URINE NEGATIVE (NEGATIVE); CLARITY,URINE CLEAR; COLOR,URINE YELLOW; GLUCOSE, URINE (UA) NEGATIVE (NEGATIVE); KETONES,URINE 1+ (NEGATIVE); LEUKOCYTE ESTERASE ,URINE NEGATIVE (NEGATIVE); NITRITE,URINE NEGATIVE (NEGATIVE); PH,URINE 5.5 (5-9); PROTEIN,URINE NEGATIVE (NEGATIVE)
--- NOTE | 2021-07-24 04:43 | ED Abdominal Pain ---
General Chief Complaint: Abdominal/GI Problems Stated Complaint: POST OP HYSTERECTOMY SURGERY PAIN Source of Information: Patient Exam Limitations: No Limitations History of Present Illness Date Seen by Provider: Jul 24, 2021 Time Seen by Provider: 04:25 Initial Comments Patient to the ER by private conveyance with her significant other and chief complaint that about 2:00 this morning she started having severe progressive worsening pain 10 out of 10 all over in her abdomen and rigidity. She is not able to pass gas since she left the hospital yesterday for a complete hysterectomy and salpingo-oophorectomy. Washer And Capper Machine Operator is Dr. Crooks who called ahead. Patient called her boilermaker apprentice who recommended she come out here. She did take a dose of [place] 5 x 325 at 2:00 in the morning which only relieved her superficial pain but not the deep pain in her abdomen. She has not been all to pass a stool. She says her urine stream was weak at first but she says that is improving. She is denying dysuria. She has a history of 2 C-sections in the past. She says there were several adhesions lysed during the surgery. She is not having nausea or fever. She has a history of fibromyalgia. Allergies and Home Medications Allergies Coded Allergies: No Known Drug Allergies (Unverified , 09/20/18) Patient Home Medication List Home Medication List Reviewed: Yes Acetaminophen (Acetaminophen) 500 Mg Tablet, 1,000 MG PO Q8HR Prescribed by: TODD CROOKS on 07/23/211522 Fexofenadine HCl (Lakisha Allergy) 180 Mg Tablet, 180 MG PO DAILY, (Reported) Entered as Reported by: CHRISTIANO IRAHETA on 07/17/21 1308 Ibuprofen (Ibu) 600 Mg Tablet, 600 MG PO Q6HR Prescribed by: TODD CROOKS on 07/23/211522 Multivitamin (Multivitamin) 1 Each Tablet, 1 EACH PO DAILY, (Reported) Entered as Reported by: CHRISTIANO IRAHETA on 07/17/21 1308 Oxycodone Hcl (Oxyir Tablet) 5 Mg Tab, 5 MG PO Q4HR PRN for PAIN-SEE DOSE INSTRUCTIONS Prescribed by: TODD CROOKS on 07/23/21 152 Discontinued Medications Fluoxetine HCl (Prozac) 40 Mg Capsule, 40 MG PO DAILY, (Reported) Discontinued Reason: No Longer Taking Entered as Reported by: ERICA SELF on 09/21/18 0714 Hydrocodone Bit/Acetaminophen (Lortab 5 Mg Tablet) 1 Tab Tab, 1 TAB PO Q6H PRN for PAIN-MODERATE Discontinued Reason: No Longer Taking Prescribed by: TODD CROOKS on 09/21/18 1117 Ibuprofen (Ibuprofen) 600 Mg Tablet, 600 MG PO Q6H Discontinued Reason: No Longer Taking Prescribed by: TODD CROOKS on 09/21/18 1117 Ranitidine HCl (Acid Director Utilization Management (RANITIDINE)) 75 Mg Tablet, 75 MG PO DAILY, (Reported) Discontinued Reason: No Longer Taking Entered as Reported by: MAX SHEPARD on 09/20/18 1209 Review of Systems Review of Systems Constitutional: No chills, No fever, No malaise EENTM: No Blurred Vision, No Double Vision Respiratory: Denies Cough, Denies Shortness of Air Cardiovascular: Denies Chest Pain, Denies Lightheadedness Gastrointestinal: Denies Abdomen Distended; Abdominal Pain; Denies Constipated, Denies Diarrhea, Denies Nausea Genitourinary: Denies Burning, Denies Discharge Musculoskeletal: No back pain, No joint pain Skin: No pruritus, No rash Psychiatric/Neurological: Denies Headache, Denies Numbness All Other Systems Reviewed Negative Unless Noted: Yes Past Vpwwese-Psilgi-Otrgfi Hx Patient Social History Tobacco Use?: No Use of E-Cig and/or Vaping dev: No Substance use?: No Alcohol Use?: No Immunizations Up To Date Tetanus Booster (TDap): Less than 5yrs PED Vaccines UTD: No Seasonal Allergies Seasonal Allergies: Yes Past Medical History Surgeries: Yes (D&C x1, CS x2) Appendectomy, Tubal Ligation Respiratory: Yes (asthma with seasonal allergies) Asthma Currently Using CPAP: No Currently Using BIPAP: No Cardiac: Yes (HX SVT 2013) Neurological: No Reproductive Disorders: No Female Reproductive Disorders: Denies, Menstrual Problems Sexually Transmitted Disease: No HIV/AIDS: No Genitourinary: No Gastrointestinal: No Musculoskeletal: Yes Fibromyalgia Endocrine: No HEENT: Yes (GLASSES) Loss of Vision: Bilateral Hearing Impairment: Denies Cancer: No Psychosocial: Yes (pp depression with last ) Depression Integumentary: No Blood Disorders: No Adverse Reaction/Blood Tranf: No (N/A) Family Medical History Family history: Diabetes mellitus 19 MOTHER, Onset:40's - 50 Family history: Glaucoma 19 MOTHER, Onset:50's - 60 Psychotic disorder 19 MOTHER (depression) Diabetes, Psychiatric Problems Physical Exam Vital Signs Vital Signs - First Documented 07/24/21 04:25 Temp 37.1 Pulse 120 Resp 22 B/P (MAP) 142/76 (98) Pulse Ox 100 O2 Delivery Room Air Capillary Refill : Height/Weight/BMI Height: 5'1.00" Weight: 118lbs. 0.0oz. [id number]; 20.51 BMI Method:Stated General Appearance: WD/WN, moderate distress HEENT: PERRL/EOMI, pharynx normal Neck: full range of motion, normal inspection Respiratory: lungs clear, normal breath sounds, no respiratory distress, no accessory muscle use Cardiovascular: normal peripheral pulses, regular rate, rhythm Peripheral Pulses: 2+ Radial Pulses (R), 2+ Radial Pulses (L) Gastrointestinal: normal bowel sounds (Hyperactive); No soft; guarding, tenderness (All 4 quadrants) Extremities: normal range of motion, normal inspection, normal capillary refill Neurologic/Psychiatric: alert; No normal mood/affect (Anxious affect); oriented x 3 Skin: normal color, warm/dry, other (Abdominal wounds are clean dry intact and dressed. No erythema induration or exudate) Focused Exam Lactate Level 07/24/21 04:40: Lactic Acid Level 2.50*H Lactic Acid Level Laboratory Tests Test 07/24/21 04:40 Lactic Acid Level 2.50 MMOL/L (0.50-2.00) *H Progress/Results/Core Measures Results/Orders Lab Results Laboratory Tests Test 07/24/21 04:25 07/24/21 04:40 Range/Units Urine Color YELLOW Urine Clarity CLEAR Urine pH 5.5 5-9 Urine Specific [place] <=1.005 1.016-1.022 Urine Protein NEGATIVE NEGATIVE Urine Glucose (UA) NEGATIVE NEGATIVE Urine Ketones 1+ H NEGATIVE Urine Nitrite NEGATIVE NEGATIVE Urine Bilirubin NEGATIVE NEGATIVE Urine Urobilinogen 0.2 < = 1.0 MG/DL Urine Leukocyte Esterase NEGATIVE NEGATIVE Urine RBC (Auto) 1+ H NEGATIVE Urine RBC 2-5 H /HPF Urine WBC RARE /HPF Urine Crystals NONE /LPF Urine Bacteria NEGATIVE /HPF Urine Casts NONE /LPF Urine Mucus NEGATIVE /LPF Urine Culture Indicated NO White Blood Count 21.5 H 4.3-11.0 10^3/uL Red Blood Count 4.11 3.80-5.11 10^6/uL Hemoglobin 11.9 11.5-16.0 g/dL Hematocrit 35 35-52 % Mean Corpuscular Volume 84 80-99 fL Mean Corpuscular Hemoglobin 29 25-34 pg Mean Corpuscular Hemoglobin Concent 34 32-36 g/dL Red Cell Distribution Width 12.1 10.0-14.5 % Platelet Count 222 130-400 10^3/uL Mean Platelet Volume 10.0 9.0-12.2 fL Immature Granulocyte % (Auto) 1 % Neutrophils (%) (Auto) 91 H 42-75 % Lymphocytes (%) (Auto) 4 L 12-44 % Monocytes (%) (Auto) 4 0-12 % Eosinophils (%) (Auto) 0 0-10 % Basophils (%) (Auto) 0 0-10 % Neutrophils # (Auto) 19.6 H 1.8-7.8 10^3/uL Lymphocytes # (Auto) 0.9 L 1.0-4.0 10^3/uL Monocytes # (Auto) 0.9 0.0-1.0 10^3/uL Eosinophils # (Auto) 0.0 0.0-0.3 10^3/uL Basophils # (Auto) 0.0 0.0-0.1 10^3/uL Immature Granulocyte # (Auto) 0.1 0.0-0.1 10^3/uL Neutrophils % (Manual) 89 % Lymphocytes % (Manual) 5 % Monocytes % (Manual) 2 % Band Neutrophils 4 % Prothrombin Time 14.8 H 12.2-14.7 SEC INR Comment 1.1 0.8-1.4 Activated Partial Thromboplast Time 33 24-35 SEC Sodium Level 128 L 135-145 MMOL/L Potassium Level 4.6 3.6-5.0 MMOL/L Chloride Level 100 98-107 MMOL/L Carbon Dioxide Level 15 L 21-32 MMOL/L Anion Gap 13 5-14 MMOL/L Blood Urea Nitrogen 10 7-18 MG/DL Creatinine 0.74 0.60-1.30 MG/DL Estimat Glomerular Filtration Rate 89 BUN/Creatinine Ratio 14 Glucose Level 191 H 70-105 MG/DL Lactic Acid Level 2.50 *H 0.50-2.00 MMOL/L Calcium Level 8.8 8.5-10.1 MG/DL Corrected Calcium 8.4 L 8.5-10.1 MG/DL Total Bilirubin 1.1 H 0.1-1.0 MG/DL Aspartate Amino Transf (AST/SGOT) 22 5-34 U/L Alanine Aminotransferase (ALT/SGPT) 14 0-55 U/L Alkaline Phosphatase 46 40-136 U/L Total Protein 6.9 6.4-8.2 GM/DL Albumin 4.5 3.2-4.5 GM/DL Lipase 20 8-78 U/L My Orders Orders - TELLO PURCELL Ua Culture If Indicated (07/24/21 04:23) Cbc With Automated Diff (07/24/21:23) Comprehensive Metabolic Panel (07/24/21:) Lipase (07/24/21 04:23) Ct Abdomen/Pelvis W (07/24/21 04:33) Fentanyl Inj (Sublimaze Injection) (07/24/21 04:45) Ed Iv/Invasive Line Start (07/24/21 04:33) Blood Culture (07/24/21 04:33) Sputum Culture (07/24/21 04:33) Urine Culture (07/24/21 04:33) Protime With Inr (07/24/21 04:33) Partial Thromboplastin Time (07/24/21 04:33) Chest 1 View, Ap/Pa Only (07/24/21 04:33) Ed Iv/Invasive Line Start (07/24/21 04:33) Ed Iv/Invasive Line Start (07/24/21 04:33) Vital Signs Adult Sepsis Patie Q15M (07/24/21 04:33) O2 (07/24/21 04:33) Remove Rings In Anticipation O (07/24/21 04:33) Lactic Acid Analyzer (07/24/21 04:33) Lactated Ringers (Lr 1000 Ml Iv Solution (07/24/21 04:45) Ceftriaxone (Rocephin) (07/24/21 04:45) Metronidazole 500mg/100ml Ivpb (Flagyl 5 (07/24/21 04:45) Manual Differential (07/24/21 04:40) Ed Iv/Invasive Line Start (07/24/21 05:14) Ns Iv 500 Ml (Sodium Chloride 0.9%) (07/24/21 05:15) Iohexol Injection (Omnipaque 350 Mg/Ml 1 (07/24/21 05:30) Received Contrast (Hold Metformin- Contr (07/24/21 05:30) Sodium Chloride Flush (Catheter Flush Sy (07/24/21 05:30) Ns (Ivpb) (Sodium Chloride 0.9% Ivpb Bag (07/24/21 05:30) Medications Given in ED Current Medications Medications Dose Ordered Sig/Uma Route Start Time Stop Time Status Last Admin Dose Admin Ceftriaxone Sodium 1000 mg/ Sterile Water 10 ml @ 200 mls/hr ONCE ONCE IV 07/24/21 04:45 07/24/21 04:47 DC 07/24/21 04:58 200 MLS/HR Fentanyl Citrate 50 mcg ONCE ONCE IVP 07/24/21 04:45 07/24/21 04:46 DC 07/24/21 04:55 50 MCG Iohexol 100 ml ONCE ONCE IV 07/24/21 05:30 07/24/21 05:31 DC 07/24/21 05:42 75 ML Lactated Ringer's 1,000 ml @ 0 mls/hr Q0M ONCE IV 07/24/21 04:45 07/24/21 04:46 DC 07/24/21 04:55 999 MLS/HR Metronidazole 100 ml @ 100 mls/hr ONCE ONCE IV 07/24/21 04:45 07/24/21 05:44 DC 07/24/21 05:08 100 MLS/HR Sodium Chloride 10 ml NEEDED PRN IV 07/24/21 05:30 07/24/21 05:42 10 ML Sodium Chloride 100 ml ONCE ONCE IV 07/24/21 05:30 07/24/21 05:31 DC 07/24/21 05:42 80 ML Vital Signs/I&O 07/24/21 04:25 Temp 37.1 Pulse 120 Resp 22 B/P (MAP) 142/76 (98) Pulse Ox 100 O2 Delivery Room Air Progress Progress Note : Time: 04:39 Progress Note Concern for postop complication including infection, bowel, ureter etc. injury. Septic work-up based on tachycardia and tachypneic 24. Her tachypnea could also be because of pain. We will give her 50 mcg of IV fentanyl to start and see how she handles that. She has a reasonable blood pressure of 120/80. Heart rate is in the 100-110 range. Her abdomen is not soft and is tender throughout. CT with IV contrast. 1 L of fluids would be 20 mL/kg. Antibiotic coverage would be Rocephin and metronidazole. Diagnostic Imaging Diagonstic Imaging: CT Plain Films/CT/US/NM/MRI: abdomen, pelvis [facility] [place] [place] NAME: SAUL AVELAR [facility] REC#: [id number] PT STATUS: REG ER : 1985 PHYSICIAN: TELLO PURCELL MD ADMIT DATE: 07/24/21/ER Draft Date of Exam:07/24/21 CT ABDOMEN/PELVIS W PROCEDURE: CT abdomen and pelvis with contrast. TECHNIQUE: Multiple contiguous axial images were obtained through the abdomen and pelvis after administration of intravenous contrast. Auto Exposure Controls were utilized during the CT exam to meet ALARA standards for radiation dose reduction. All CT scans use one or more of the following dose optimizing techniques: automated exposure control, MA and/or KvP adjustment based on patient size and exam type or iterative reconstruction. INDICATION: Abdominal pain one day after hysterectomy. FINDINGS: There is moderate to large amount of pneumoperitoneum and additional gas seen within the mesentery. There is a small amount of peritoneal free fluid. Partially opacified urinary bladder is unremarkable. There is no evidence of perivesicular contrast extravasation. There is no evidence of significant hemorrhage at the hysterectomy site. Great vessels of the abdomen are unremarkable. Ureters demonstrate normal course bilaterally. There is no evidence of urine leak. No hepatic, gallbladder, pancreatic, adrenal gland or splenic lesion is identified. The appendix is not visualized and may be surgically absent. IMPRESSION: Postoperative findings of recent hysterectomy with moderate amount of pneumoperitoneum. No other definite acute complication is identified. Dictated on workstation # [id number] Dict: 07/24/2140 Trans: 07/24/21 0545 [id number] Interpreted by: TALITA ERICKSON MD Electronically signed by: Reviewed: Reviewed by Me Diagonstic Imaging: Xray Plain Films/CT/US/NM/MRI: chest Comments [facility] [place] [place] NAME: SAUL AVELAR [facility] REC#: [id number] PT STATUS: REG ER : 1985 PHYSICIAN: TELLO PURCELL MD ADMIT DATE: 07/24/21/ER Draft Date of Exam:07/24/21 CHEST 1 VIEW, AP/PA ONLY INDICATION: Abdominal pain post hysterectomy one day earlier. FINDINGS: Upright AP view of the chest is obtained. Heart size and pulmonary vascularity are within normal limits. The lungs appear clear bilaterally. There is presumed postoperative pneumoperitoneum. IMPRESSION: No acute abnormality seen in the chest. Postoperative pneumoperitoneum is present. Dictated on workstation # [id number] Dict: 07/24/2136 Trans: 07/24/2142 [id number] Interpreted by: TALITA ERICKSON MD Electronically signed by: Reviewed: Reviewed by Me Departure Communication (Admissions) Time/Spoke to Admitting Phy: 05:45 Discussed the case with Dr. Greer who is familiar with the patient and she recommends observation of the patient with n.p.o. status, maintenance IV fluids. Impression Primary Impression: Postoperative pain Additional Impression: Hyponatremia Disposition: ADMITTED INPATIENT Condition: Stable Admissions Decision to Admit Reason: Admit from ER (General) Decision to Admit/Date: Jul 24, 2021 Time/Decision to Admit Time: 05:40 Departure-Patient Inst. Referrals: PAULA SIMONS MD (PCP/Family) Primary Care Physician TELLO PURCELL Jul 24, 2021 04:43
[2021-07-24] MEDS ORDERED: fentaNYL INJ 100 MCG/2 ML AMP IVP ONE ×2 (04:45→06:30)
[2021-07-24] MEDS ORDERED: cefTRIAXone 1,000 MG in WATER (STERILE) FOR INJECTION 10 ML IV ONE (04:45)
[2021-07-24] MEDS ORDERED: LACTATED RINGERS 1,000 ML IV ONE (04:45)
[2021-07-24] MEDS ORDERED: metroNIDAZOLE 500MG/100ML IVPB 100 ML IV ONE (04:45)
[2021-07-24 04:46] LABS: BACTERIA,URINE NEGATIVE /HPF; WBC,URINE RARE /HPF
[2021-07-24 04:53] LABS: BASOPHILS % (AUTO) 0 % (0-10); EOSINOPHILS % (AUTO) 0 % (0-10); HEMATOCRIT 35 % (35-52); HEMOGLOBIN 11.9 g/dL (11.5-16.0); LYMPHOCYTES # (AUTO) 0.9 10^3/uL (1.0-4.0); LYMPHOCYTES % (AUTO) 4 % (12-44); MEAN CORPUSCULAR HEMOGLOBIN 29 pg (25-34); MEAN CORPUSCULAR HGB CONC 34 g/dL (32-36); MEAN CORPUSCULAR VOLUME 84 fL (80-99); MONOCYTES # (AUTO) 0.9 10^3/uL (0.0-1.0); MONOCYTES % (AUTO) 4 % (0-12); NEUTROPHILS # (AUTO) 19.6 10^3/uL (1.8-7.8); NEUTROPHILS % (AUTO) 91 % (42-75); PLATELET COUNT 222 10^3/uL (130-400); WHITE BLOOD COUNT 21.5 10^3/uL (4.3-11.0)
[2021-07-24 05:05] LABS: ALBUMIN 4.5 GM/DL (3.2-4.5)
[2021-07-24 05:06] LABS: POTASSIUM 4.6 MMOL/L (3.6-5.0)
[2021-07-24 05:07] LABS: CALCIUM 8.8 MG/DL (8.5-10.1)
[2021-07-24 05:08] LABS: TOTAL PROTEIN 6.9 GM/DL (6.4-8.2)
[2021-07-24 05:10] LABS: BILIRUBIN,TOTAL 1.1 MG/DL (0.1-1.0); INR 1.1 (0.8-1.4); PROTHROMBIN TIME PATIENT 14.8 SEC (12.2-14.7)
[2021-07-24 05:12] LABS: CREATININE SERUM 0.74 MG/DL (0.60-1.30)
[2021-07-24] MEDS ORDERED: NS IV 500 ML 500 ML IV ONE (05:15)
[2021-07-24 05:19] LABS: BAND NEUTROPHILS 4 %; LYMPHOCYTES % (MANUAL) 5 %; MONOCYTES % (MANUAL) 2 %; NEUTROPHILS % (MANUAL) 89 %
[2021-07-24] MEDS ORDERED: IOHEXOL 350 MG/ML 100 ML (OMNIPAQUE 350) VIAL IV ONE (05:30)
[2021-07-24] MEDS ORDERED: NS 100 ML (IVPB) BAG IV ONE (05:30)
[2021-07-24] MEDS ORDERED: HOLD METFORMIN - RECEIVED CONTRAST 20 ML VIAL IV SCH (05:30)
[2021-07-24] MEDS: CATHETER FLUSH 10 ML SYR IV PRN ×3 (05:42→15:22)
--- NOTE | 2021-07-24 05:42 | Diagnostic Imaging Report ---
INDICATION: Abdominal pain post hysterectomy one day earlier. FINDINGS: Upright AP view of the chest is obtained. Heart size and pulmonary vascularity are within normal limits. The lungs appear clear bilaterally. There is presumed postoperative pneumoperitoneum. IMPRESSION: No acute abnormality seen in the chest. Postoperative pneumoperitoneum is present. Dictated by: Dictated on workstation # [id number]
--- NOTE | 2021-07-24 05:45 | Diagnostic Imaging Report ---
PROCEDURE: CT abdomen and pelvis with contrast. TECHNIQUE: Multiple contiguous axial images were obtained through the abdomen and pelvis after administration of intravenous contrast. Auto Exposure Controls were utilized during the CT exam to meet ALARA standards for radiation dose reduction. All CT scans use one or more of the following dose optimizing techniques: automated exposure control, MA and/or KvP adjustment based on patient size and exam type or iterative reconstruction. INDICATION: Abdominal pain one day after hysterectomy. FINDINGS: There is moderate to large amount of pneumoperitoneum and additional gas seen within the mesentery. There is a small amount of peritoneal free fluid. Partially opacified urinary bladder is unremarkable. There is no evidence of perivesicular contrast extravasation. There is no evidence of significant hemorrhage at the hysterectomy site. Great vessels of the abdomen are unremarkable. Ureters demonstrate normal course bilaterally. There is no evidence of urine leak. No hepatic, gallbladder, pancreatic, adrenal gland or splenic lesion is identified. The appendix is not visualized and may be surgically absent. IMPRESSION: Postoperative findings of recent hysterectomy with moderate amount of pneumoperitoneum. No other definite acute complication is identified. Dictated by: Dictated on workstation # [id number]
[2021-07-24 08:00] VITALS: BP 120/58
[2021-07-24] MEDS ORDERED: fentaNYL INJ 100 MCG/2 ML AMP IVP PRN (08:15)
[2021-07-24] MEDS ORDERED: GLYCERIN ADULT SUPPOSITORY PR PRN (08:30)
[2021-07-24] MEDS: KETOROLAC 30 MG/ML VIAL IVP SCH ×3 (09:03→21:24)
[2021-07-24] MEDS: METOCLOPRAMIDE INJ 10 MG/2 ML (REGLAN) IVP SCH ×3 (09:03→18:10)
[2021-07-24] MEDS: SIMETHICONE 80 MG (MYLICON) CHEW PO PRN ×4 (09:03→18:10)
[2021-07-24] MEDS: LACTATED RINGERS 1,000 ML IV SCH ×2 (09:09→18:10)
[2021-07-24 09:10] LABS: BASOPHILS % (AUTO) 0 % (0-10); EOSINOPHILS % (AUTO) 0 % (0-10); HEMATOCRIT 33 % (35-52); HEMOGLOBIN 11.1 g/dL (11.5-16.0); LYMPHOCYTES # (AUTO) 1.1 10^3/uL (1.0-4.0); LYMPHOCYTES % (AUTO) 6 % (12-44); MEAN CORPUSCULAR HEMOGLOBIN 29 pg (25-34); MEAN CORPUSCULAR HGB CONC 34 g/dL (32-36); MEAN CORPUSCULAR VOLUME 86 fL (80-99); MEAN PLATELET VOLUME 9.6 fL (9.0-12.2); MONOCYTES % (AUTO) 5 % (0-12); NEUTROPHILS # (AUTO) 16.9 10^3/uL (1.8-7.8); NEUTROPHILS % (AUTO) 88 % (42-75); PLATELET COUNT 196 10^3/uL (130-400); WHITE BLOOD COUNT 19.2 10^3/uL (4.3-11.0)
[2021-07-24] MEDS: ACETAMINOPHEN 500 MG TAB (TYLENOL) PO SCH ×2 (09:17→17:04)
[2021-07-24] MEDS ORDERED: METOCLOPRAMIDE INJ 10 MG/2 ML (REGLAN) IVP SCH (12:00)
[2021-07-24 12:19] VITALS: BP 101/55
[2021-07-24] MEDS: metroNIDAZOLE 500MG/100ML IVPB 100 ML IV SCH ×2 (14:17→21:25)
[2021-07-24 16:22] VITALS: BP 104/57
--- NOTE | 2021-07-24 16:36 | Consultation ---
History of Present Illness History of Present Illness Patient Consulted On(jozef/time) 07/24/21 16:31 Date Seen by Provider: Jul 24, 2021 Time Seen by Provider: 16:31 Reason for Visit: Abdominal pain History of Present Illness Patient underwent hysterectomy yesterday with luciano for the bowel. Discharged and returned to the ER for not feeling well. + Urinary retention with 800cc for straight cath and then later miller insertion with 500cc. No flatus. Allergies and Home Medications Allergies Coded Allergies: No Known Drug Allergies (Unverified , 09/20/18) Patient Home Medication List Home Medication List Reviewed: Yes Acetaminophen (Acetaminophen) 500 Mg Tablet, 1,000 MG PO Q8HR Prescribed by: TODD CROOKS on 07/23/21 1523 Fexofenadine HCl (Lakisha Allergy) 180 Mg Tablet, 180 MG PO DAILY, (Reported) Entered as Reported by: CHRISTIANO IRAHETA on 07/17/21 1308 Ibuprofen (Ibu) 600 Mg Tablet, 600 MG PO Q6HR Prescribed by: TODD CROOKS on 07/23/21 1523 Multivitamin (Multivitamin) 1 Each Tablet, 1 EACH PO DAILY, (Reported) Entered as Reported by: CHRISTIANO IRAHETA on 07/17/21 1308 Oxycodone Hcl (Oxyir Tablet) 5 Mg Tab, 5 MG PO Q4HR PRN for PAIN-SEE DOSE INSTRUCTIONS Prescribed by: TODD CROOKS on 07/23/21 1523 Discontinued Medications Fluoxetine HCl (Prozac) 40 Mg Capsule, 40 MG PO DAILY, (Reported) Discontinued Reason: No Longer Taking Entered as Reported by: ERICA SELF on 09/21/18 0714 Hydrocodone Bit/Acetaminophen (Lortab 5 Mg Tablet) 1 Tab Tab, 1 TAB PO Q6H PRN for PAIN-MODERATE Discontinued Reason: No Longer Taking Prescribed by: TODD CROOKS on 09/21/18 1117 Ibuprofen (Ibuprofen) 600 Mg Tablet, 600 MG PO Q6H Discontinued Reason: No Longer Taking Prescribed by: TODD CROOKS on 09/21/18 1117 Ranitidine HCl (Acid Multiple Knife Edge Trimmer Operator (RANITIDINE)) 75 Mg Tablet, 75 MG PO DAILY, (Reported) Discontinued Reason: No Longer Taking Entered as Reported by: MAX SHEPARD on 09/20/18 1209 Past Hlezler-Gobnwn-Gnwsvd Hx Patient Social History Tobacco Use?: No Smoking Status: Never a Smoker Use of E-Cig and/or Vaping dev: No Substance use?: No Alcohol Use?: No Pt feels they are or have been: No Immunizations Up To Date Tetanus Booster (TDap): Less than 5yrs PED Vaccines UTD: No First/Initial COVID19 Vaccinat: NA Seasonal Allergies Seasonal Allergies: Yes Past Medical History Surgeries: Yes (D&C x1, CS x2) Appendectomy, Tubal Ligation Respiratory: Yes (asthma with seasonal allergies) Asthma Currently Using CPAP: No Currently Using BIPAP: No Cardiac: Yes (HX SVT 2013) Neurological: No : No Reproductive Disorders: No Female Reproductive Disorders: Denies, Menstrual Problems Sexually Transmitted Disease: No HIV/AIDS: No Genitourinary: No Gastrointestinal: No Musculoskeletal: Yes Fibromyalgia Endocrine: No HEENT: Yes (GLASSES) Loss of Vision: Bilateral Hearing Impairment: Denies Cancer: No Psychosocial: Yes (pp depression with last ) Depression Integumentary: No Blood Disorders: No Adverse Reaction/Blood Tranf: No (N/A) Family Medical History Family history: Diabetes mellitus 19 MOTHER, Onset:40's - 50 Family history: Glaucoma 19 MOTHER, Onset:50's - 60 Psychotic disorder 19 MOTHER (depression) Diabetes, Psychiatric Problems Physical Exam-General Problems Physical Exam Vital Signs Vital Signs - First Documented 07/24/21 04:25 Temp 37.1 Pulse 120 Resp 22 B/P (MAP) 142/76 (98) Pulse Ox 100 O2 Delivery Room Air Capillary Refill : Less Than 3 Seconds Gastrointestinal: non tender, soft Assessment/Plan Assessment/Plan Admission Diagnosis/Plan Abdominal pain THERESE SUAREZ DO Jul 24, 2021 16:36
--- NOTE | 2021-07-24 17:44 | Diagnostic Imaging Report ---
INDICATION: Abdominal pain KUB 5:18 PM There is a moderate amount of intraperitoneal free air. Bowel gas pattern is normal. The lung bases are clear. IMPRESSION: Igrfzhch-od-liwnx pneumoperitoneum Patient is one day status post hysterectomy. CRITICAL FINDING Called to Dr. Obrien at 5:30 p.m. by cvb. Dictated by: Dictated on workstation # [id number]
[2021-07-24] MEDS ORDERED: TAMSULOSIN 0.4 MG (FLOMAX) CAP PO SCH (18:00)
[2021-07-24] MEDS: BETHANECHOL 25 MG (URECHOLINE) TAB PO SCH ×2 (18:04→21:24)
[2021-07-24 18:10] LABS: BASOPHILS % (AUTO) 0 % (0-10); EOSINOPHILS % (AUTO) 0 % (0-10); HEMATOCRIT 30 % (35-52); HEMOGLOBIN 10.1 g/dL (11.5-16.0); LYMPHOCYTES # (AUTO) 1.5 10^3/uL (1.0-4.0); LYMPHOCYTES % (AUTO) 10 % (12-44); MEAN CORPUSCULAR HEMOGLOBIN 29 pg (25-34); MEAN CORPUSCULAR HGB CONC 33 g/dL (32-36); MEAN CORPUSCULAR VOLUME 86 fL (80-99); MEAN PLATELET VOLUME 9.7 fL (9.0-12.2); MONOCYTES # (AUTO) 0.8 10^3/uL (0.0-1.0); MONOCYTES % (AUTO) 5 % (0-12); NEUTROPHILS % (AUTO) 84 % (42-75); PLATELET COUNT 177 10^3/uL (130-400); WHITE BLOOD COUNT 15.4 10^3/uL (4.3-11.0)
[2021-07-24 18:34] LABS: EOSINOPHILS % (MANUAL) 1 %; LYMPHOCYTES % (MANUAL) 12 %; MONOCYTES % (MANUAL) 2 %; NEUTROPHILS % (MANUAL) 85 %; RBC MORPH NORMAL
[2021-07-24 19:50] VITALS: BP 102/48
[2021-07-25 00:15] VITALS: BP 99/54
[2021-07-25] MEDS: METOCLOPRAMIDE INJ 10 MG/2 ML (REGLAN) IVP SCH ×3 (00:15→11:51)
[2021-07-25] MEDS: LACTATED RINGERS 1,000 ML IV SCH ×2 (03:08→09:49)
[2021-07-25] MEDS: KETOROLAC 30 MG/ML VIAL IVP SCH ×3 (03:08→14:30)
[2021-07-25 03:09] VITALS: BP 98/54
[2021-07-25] MEDS: metroNIDAZOLE 500MG/100ML IVPB 100 ML IV SCH ×2 (05:23→14:31)
[2021-07-25] MEDS: BETHANECHOL 25 MG (URECHOLINE) TAB PO SCH ×2 (05:24→11:51)
[2021-07-25 05:36] VITALS: BP 104/55
[2021-07-25] MEDS: ACETAMINOPHEN 500 MG TAB (TYLENOL) PO SCH ×2 (05:40→14:30)
[2021-07-25 06:19] LABS: ALBUMIN 3.2 GM/DL (3.2-4.5)
[2021-07-25 06:20] LABS: POTASSIUM 3.7 MMOL/L (3.6-5.0)
[2021-07-25 06:21] LABS: CALCIUM 7.6 MG/DL (8.5-10.1)
[2021-07-25 06:24] LABS: BILIRUBIN,TOTAL 0.5 MG/DL (0.1-1.0)
[2021-07-25 06:26] LABS: CREATININE SERUM 0.56 MG/DL (0.60-1.30)
[2021-07-25 07:41] LABS: BASOPHILS % (AUTO) 0 % (0-10); EOSINOPHILS # (AUTO) 0.1 10^3/uL (0.0-0.3); EOSINOPHILS % (AUTO) 1 % (0-10); HEMATOCRIT 27 % (35-52); HEMOGLOBIN 9.2 g/dL (11.5-16.0); LYMPHOCYTES # (AUTO) 1.6 10^3/uL (1.0-4.0); LYMPHOCYTES % (AUTO) 17 % (12-44); MEAN CORPUSCULAR HEMOGLOBIN 30 pg (25-34); MEAN CORPUSCULAR HGB CONC 34 g/dL (32-36); MEAN CORPUSCULAR VOLUME 88 fL (80-99); MEAN PLATELET VOLUME 11.3 fL (9.0-12.2); MONOCYTES # (AUTO) 0.6 10^3/uL (0.0-1.0); MONOCYTES % (AUTO) 6 % (0-12); NEUTROPHILS # (AUTO) 7.5 10^3/uL (1.8-7.8); NEUTROPHILS % (AUTO) 77 % (42-75); PLATELET COUNT 162 10^3/uL (130-400); WHITE BLOOD COUNT 9.8 10^3/uL (4.3-11.0)
--- NOTE | 2021-07-25 07:54 | History & Physical ---
History of Present Illness History of Present Illness Reason for visit/HPI post operative abdominal pain Date of Admission Jul 24, 2021 at 06:00 Date Seen by a Provider: Jul 24, 2021 Time Seen by a Provider: 08:30 I consulted on this patient on Attending Physician Ivet Crooks DO Admitting Physician Dougie Cordoba MD Consult Allergies and Home Medications Allergies Coded Allergies: No Known Drug Allergies (Unverified , 09/20/18) Patient Home Medication List Acetaminophen (Acetaminophen) 500 Mg Tablet, 1,000 MG PO Q8HR Prescribed by: IVET CROOKS on 07/23/21 1523 Fexofenadine HCl (Lakisha Allergy) 180 Mg Tablet, 180 MG PO DAILY, (Reported) Entered as Reported by: CHRISTIANO IRAHETA on 07/17/21 1308 Ibuprofen (Ibu) 600 Mg Tablet, 600 MG PO Q6HR Prescribed by: IVET CROOKS on 07/23/21 1523 Multivitamin (Multivitamin) 1 Each Tablet, 1 EACH PO DAILY, (Reported) Entered as Reported by: CHRISTIANO IRAHETA on 07/17/21 1308 Oxycodone Hcl (Oxyir Tablet) 5 Mg Tab, 5 MG PO Q4HR PRN for PAIN-SEE DOSE INSTRUCTIONS Prescribed by: IVET CROOKS on 07/23/21 1523 Past Rdkcoed-Pwbtfy-Csacal Hx Patient Social History Tobacco Use?: No Smoking Status: Never a Smoker Use of E-Cig and/or Vaping dev: No Substance use?: No Alcohol Use?: No Pt feels they are or have been: No Immunizations Up To Date Date of Influenza Vaccine: Jun 21, 2018 First/Initial COVID19 Vaccinat: NA Hepatitis A: Yes Hepatitis B: Yes PED Vaccines UTD: No Seasonal Allergies Seasonal Allergies: Yes Current Status status: No Primary Language: Iranian Preferred Spoken Language: Iranian Past Medical History Surgeries: Appendectomy, Tubal Ligation Asthma Currently Using CPAP: No Currently Using BIPAP: No Sexually Transmitted Disease: No HIV/AIDS: No Fibromyalgia Loss of Vision: Bilateral Hearing Impairment: Denies Depression Blood Disorders: No Adverse Reaction/Blood Tranf: No (N/A) Family Medical History Family history: Diabetes mellitus 19 MOTHER, Onset:40's - 50 Family history: Glaucoma 19 MOTHER, Onset:50's - 60 Psychotic disorder 19 MOTHER (depression) Diabetes, Psychiatric Problems Physical Exam Vital Signs Vital Signs - First Documented 07/24/21 04:25 Temp 37.1 Pulse 120 Resp 22 B/P (MAP) 142/76 (98) Pulse Ox 100 O2 Delivery Room Air Capillary Refill : Less Than 3 Seconds Height, Weight, BMI Height: 5'1.00" Weight: 118lbs. 0.0oz. 53.238542ar; 19.00 BMI Method:Stated IVET CROOKS DO Jul 25, 2021 07:54
[2021-07-25 08:00] VITALS: BP 120/64
--- NOTE | 2021-07-25 08:00 | Progress Note ---
Subjective Date Seen by a Provider: Jul 25, 2021 Time Seen by a Provider: 07:50 Subjective/Events-last exam urinary retention (850 ml cath and then 500 ml bladder scan) so miller replaced and started on urecholine and flomax. Will dc miller this am, but UO was decreased overnight. WBC is improving. KUB yesterday showed moderate pneumoperitoneum consistent with previous Xray and CT and consistent with post operative status. Xray this am has not yet been completed Will give fluid bolus and then DC miller. If still has retention, will have Dr. Odonnell consult. Vitals are stable and she feels better. Laboratory Tests Test 07/24/21 09:00 07/24/21 18:00 07/25/21 05:34 Range/Units White Blood Count 19.2 H 15.4 H 9.8 4.3-11.0 10^3/uL Red Blood Count 3.80 3.50 L 3.12 L 3.80-5.11 10^6/uL Hemoglobin 11.1 L 10.1 L 9.2 L 11.5-16.0 g/dL Hematocrit 33 L 30 L 27 L 35-52 % Mean Corpuscular Volume 86 86 88 80-99 fL Mean Corpuscular Hemoglobin 29 29 30 25-34 pg Mean Corpuscular Hemoglobin Concent 34 33 34 32-36 g/dL Red Cell Distribution Width 12.4 12.7 13.1 10.0-14.5 % Platelet Count 196 177 162 130-400 10^3/uL Mean Platelet Volume 9.6 9.7 11.3 9.0-12.2 fL Immature Granulocyte % (Auto) 0 1 0 % Neutrophils (%) (Auto) 88 H 84 H 77 H 42-75 % Lymphocytes (%) (Auto) 6 L 10 L 17 12-44 % Monocytes (%) (Auto) 5 5 6 0-12 % Eosinophils (%) (Auto) 0 0 1 0-10 % Basophils (%) (Auto) 0 0 0 0-10 % Neutrophils # (Auto) 16.9 H 13.0 H 7.5 1.8-7.8 10^3/uL Lymphocytes # (Auto) 1.1 1.5 1.6 1.0-4.0 10^3/uL Monocytes # (Auto) 1.0 0.8 0.6 0.0-1.0 10^3/uL Eosinophils # (Auto) 0.0 0.0 0.1 0.0-0.3 10^3/uL Basophils # (Auto) 0.0 0.0 0.0 0.0-0.1 10^3/uL Immature Granulocyte # (Auto) 0.1 0.1 0.0 0.0-0.1 10^3/uL Neutrophils % (Manual) 85 % Lymphocytes % (Manual) 12 % Monocytes % (Manual) 2 % Eosinophils % (Manual) 1 % Blood Morphology Comment NORMAL Sodium Level 137 135-145 MMOL/L Potassium Level 3.7 3.6-5.0 MMOL/L Chloride Level 110 H 98-107 MMOL/L Carbon Dioxide Level 18 L 21-32 MMOL/L Anion Gap 9 5-14 MMOL/L Blood Urea Nitrogen 10 7-18 MG/DL Creatinine 0.56 L 0.60-1.30 MG/DL Estimat Glomerular Filtration Rate 123 BUN/Creatinine Ratio 18 Glucose Level 88 70-105 MG/DL Calcium Level 7.6 L 8.5-10.1 MG/DL Corrected Calcium 8.2 L 8.5-10.1 MG/DL Total Bilirubin 0.5 0.1-1.0 MG/DL Aspartate Amino Transf (AST/SGOT) 19 5-34 U/L Alanine Aminotransferase (ALT/SGPT) 11 0-55 U/L Alkaline Phosphatase 34 L 40-136 U/L Total Protein 5.0 L 6.4-8.2 GM/DL Albumin 3.2 3.2-4.5 GM/DL Focused Exam Lactate Level 07/24/21 04:40: Lactic Acid Level 2.50*H 07/24/21 07:25: Lactic Acid Level 1.95 Objective Exam Vital Signs Date Time Temp Pulse Resp B/P (MAP) Pulse Ox O2 Delivery O2 Flow Rate FiO2 07/25/21 05:36 36.7 104 16 104/55 (71) 97 Room Air 07/25/21 03:09 37.4 94 16 98/54 (69) 96 Room Air 07/25/21 00:15 36.6 106 16 99/54 (69) 98 Room Air 07/24/21 19:50 37.7 119 16 102/48 (66) 96 Room Air 07/24/21 16:22 36.8 95 16 104/57 (73) 100 Room Air 07/24/21 12:19 37.6 96 16 101/55 (70) 100 Room Air 07/24/21 11:33 Room Air 07/24/21 08:00 36.7 93 18 120/58 (78) 98 Room Air 07/24/21 07:55 86 16 108/59 100 Room Air I & O 07/25/21 07:00 Intake Total 500 ml Output Total 2675 ml Balance -2175 ml Capillary Refill : Less Than 3 Seconds General Appearance: No Apparent Distress Respiratory: Lungs Clear, Normal Breath Sounds Cardiovascular: Regular Rate, Rhythm Gastrointestinal: normal bowel sounds Results Lab Laboratory Tests 07/24/21 09:00: White Blood Count 19.2H, Red Blood Count 3.80, Hemoglobin 11.1L, Hematocrit 33L, Mean Corpuscular Volume 86, Mean Corpuscular Hemoglobin 29, Mean Corpuscular Hemoglobin Concent 34, Red Cell Distribution Width 12.4, Platelet Count 196, Mean Platelet Volume 9.6, Immature Granulocyte % (Auto) 0, Neutrophils (%) (Auto) 88H, Lymphocytes (%) (Auto) 6L, Monocytes (%) (Auto) 5, Eosinophils (%) (Auto) 0, Basophils (%) (Auto) 0, Neutrophils # (Auto) 16.9H, Lymphocytes # (Auto) 1.1, Monocytes # (Auto) 1.0, Eosinophils # (Auto) 0.0, Basophils # (Auto) 0.0, Immature Granulocyte # (Auto) 0.1 07/24/21 18:00: White Blood Count 15.4H, Red Blood Count 3.50L, Hemoglobin 10.1L, Hematocrit 30L , Mean Corpuscular Volume 86, Mean Corpuscular Hemoglobin 29, Mean Corpuscular Hemoglobin Concent 33, Red Cell Distribution Width 12.7, Platelet Count 177, Mean Platelet Volume 9.7, Immature Granulocyte % (Auto) 1, Neutrophils (%) (Auto) 84H, Lymphocytes (%) (Auto) 10L, Monocytes (%) (Auto) 5, Eosinophils (%) (Auto) 0, Basophils (%) (Auto) 0, Neutrophils # (Auto) 13.0H, Lymphocytes # (Auto) 1.5, Monocytes # (Auto) 0.8, Eosinophils # (Auto) 0.0, Basophils # (Auto) 0.0, Immature Granulocyte # (Auto) 0.1, Neutrophils % (Manual) 85, Lymphocytes % (Manual) 12, Monocytes % (Manual) 2, Eosinophils % (Manual) 1, Blood Morphology Comment NORMAL 07/25/21 05:34: White Blood Count 9.8, Red Blood Count 3.12L, Hemoglobin 9.2L, Hematocrit 27L, Mean Corpuscular Volume 88, Mean Corpuscular Hemoglobin 30, Mean Corpuscular Hemoglobin Concent 34, Red Cell Distribution Width 13.1, Platelet Count 162, Mean Platelet Volume 11.3, Immature Granulocyte % (Auto) 0, Neutrophils (%) (Auto) 77H, Lymphocytes (%) (Auto) 17, Monocytes (%) (Auto) 6, Eosinophils (%) (Auto) 1, Basophils (%) (Auto) 0, Neutrophils # (Auto) 7.5, Lymphocytes # (Auto) 1.6, Monocytes # (Auto) 0.6, Eosinophils # (Auto) 0.1, Basophils # (Auto) 0.0, Immature Granulocyte # (Auto) 0.0, Sodium Level 137, Potassium Level 3.7, Chloride Level 110H, Carbon Dioxide Level 18L, Anion Gap 9, Blood Urea Nitrogen 10, Creatinine 0.56L, Estimat Glomerular Filtration Rate 123, BUN/Creatinine Ratio 18, Glucose Level 88, Calcium Level 7.6L, Corrected Calcium 8.2L, Total Bilirubin 0.5, Aspartate Amino Transf (AST/SGOT) 19, Alanine Aminotransferase (ALT/SGPT) 11, Alkaline Phosphatase 34L, Total Protein 5.0L, Albumin 3.2 TODD CROOKS DO Jul 25, 2021 07:59
[2021-07-25] MEDS ORDERED: NS IV 500 ML 500 ML IV SCH (08:15)
--- NOTE | 2021-07-25 08:26 | Diagnostic Imaging Report ---
EXAMINATION: Abdomen 2 view HISTORY: Postoperative abdominal pain COMPARISON: 07/24/2021 FINDINGS: There is a moderate amount of gas and stool throughout the colon. Nonobstructive bowel gas pattern. Stable linear calcification or metallic artifacts in the left mid abdomen compared to 07/24/2021. There is significant amount of air seen under the diaphragm bilaterally which may be postoperative. The lung bases are clear. The osseous structures are intact. IMPRESSION: Intra-abdominal free air which may be postoperative. No other acute radiographic abnormality in the abdomen. Dictated by: Dictated on workstation # [id number]
[2021-07-25 12:07] VITALS: BP 115/67
[2021-07-25] MEDS ORDERED: TMSL.4C PO (14:53)
[2021-07-25] MEDS ORDERED: BETH25TA PO (14:53)
[2021-07-25] MEDS ORDERED: SMT80CT PO (14:53)
--- NOTE | 2021-07-25 15:29 | Progress Note ---
Standard Progress Note Progress Notes/Assess & Plan Date Seen by a Provider: Jul 25, 2021 Time Seen by a Provider: 15:27 Progress/Assessment & Plan Patient seen and examined. Doing well. + flatus, + urine vss abd: Soft, non tender, dressing clean and dry a/p s/p Robotic Hysterectomy continue current management Patient surgically stable for discharge Focused Exam Lactate Level 07/24/21 04:40: Lactic Acid Level 2.50*H 07/24/21 07:25: Lactic Acid Level 1.95 THERESE SUAREZ DO Jul 25, 2021 15:29
[2021-07-25 15:37] VITALS: BP 115/67
== END 2021-07-25 15:37 | disposition home or self-care (01) ==
LOC: EDUNIT# 04:16 → ER 04:18 → WS 06:00
PROVIDERS: ADMIT Obstetrics & Gynecology; ATTEND Obstetrics & Gynecology
DX: G89.18 Other acute postprocedural pain (principal); J45.909 Unspecified asthma, uncomplicated; M79.7 Fibromyalgia; F32.A Depression, unspecified; Z90.710 Acquired absence of both cervix and uterus; Z90.89 Acquired absence of other organs; Z98.51 Tubal ligation status; Z83.3 Family history of diabetes mellitus; Z79.891 Long term (current) use of opiate analgesic; Z79.899 Other long term (current) drug therapy
CPT/HCPCS: 71045; 74019 ×2; 74177; 80053 ×2; 81000; 83605; 83690; 85007; 85025 ×2; 85027; 85610; 85730; 87040; 87088; 94664; 96361 ×3; 96374; 96375 ×2; 96376 ×3; 99284; G0378; 36415